=== PATIENT | female | born 1975 | race Caucasian/White ===

== ENCOUNTER → 2018-08-25 08:59 | Outpatient (CLI) | payer OTHER, SELFPAY ==
[2018-08-28 14:40] LABS: Rubeola Measles IgG < 25.00 AU/mL (< 25.00)
== END ==
PROVIDERS: Family Provider Family Medicine; PCP Family Medicine; Visit Provider Family Medicine
DX: Z01.84 Encounter for antibody response examination (principal)
CPT/HCPCS: 36415; 86765

== ENCOUNTER → 2018-09-13 15:05 | Outpatient (CLI) | payer OTHER, SELFPAY ==
[2018-09-13 17:37] LABS: Free T4, Direct Thyroxine 3.48 ng/dL (0.78-2.19)
[2018-09-13 17:51] LABS: Thyroid Stimulating Hormone < 0.02 uIU/mL (0.47-4.68)
[2018-09-18 14:36] LABS: Thyroid Peroxidase Antibodies 1 IU/mL (< 9)
== END ==
PROVIDERS: PCP Family Medicine; Visit Provider Family Medicine
DX: L65.9 Nonscarring hair loss, unspecified (principal); E05.90 Thyrotoxicosis, unspecified without thyrotoxic crisis or storm
CPT/HCPCS: 36415; 84439; 84443; 84481; 86376

== ENCOUNTER 2018-09-20 16:17 | Emergency (ER) | payer OTHER, SELFPAY ==
[2018-09-20 16:20] VITALS: BP 132/103; PULSE 121; RESP 18; TEMP 36.6; O2SAT 98; BMI 25.1
--- NOTE | 2018-09-20 16:30 | ED.ARRPALP ---
HPI - Arrhythmia/Palpitations <Jeanette Lynch PA-C - Last Filed: 09/20/18 21:19> General Chief Complaint: Recheck/Abnormal Lab/Rx Stated Complaint: rapid heart rate, thyroid numbers are off Time Seen by Provider: 09/20/18 16:18 Source: patient Mode of arrival: ambulatory Limitations: no limitations History of Present Illness HPI narrative: This 43-year-old female was sent from her PCP office due to tachycardia concern for possible thyroid storm. She states that for about 2 months, she has had intermittent fast heart rate that she can usually resolve on her own with taking deep breaths. She states she does that to help with her anxiety and it usually works well. She states that she can feel uncomfortable with heart rates in the 90-100 range at home, and the highest heart rate she has seen is 120, but usually this is not sustained. She states that today, she noted high heart rate this morning and it was not coming down as usual which is what prompted her to go in. She states she has not had any chest pain or dyspnea. She has had intermittent problem with her heart either pounding or fast heart rate keeping her up at night. She has not had any irregular heartbeat. She states she has had more fatigue for the last couple of months. She has not had any fever. She denies bowel habit change or any diarrhea. She has not had any nausea or vomiting nor any new abdominal pain. She has not felt more anxious or agitated. She states that she has been eating and drinking normally and going about her usual activities. Only other + on systems review are occasional dysphagia and numbness and white discoloration of her fingers with cold exposure. She has a history of mild reactive airways for which she has not needed an inhaler in years she says. Of note she has taken propanolol in the past occasionally for anxiety without difficulties Related Data Home Medications Medication Instructions Recorded Confirmed lisdexamfetamine [Vyvanse] 70 mg PO QDAY #0 11/30/16 09/20/18 guanfacine 1 mg tablet 1 mg PO BID #0 tab 02/16/18 09/20/18 Previous Rx's Medication Instructions Recorded methimazole 10 mg tablet 10 mg PO DAILY #30 tab 09/20/18 propranolol 20 mg PO BID #90 tab 09/20/18 Allergies Allergy/AdvReac Type Severity Reaction Status Date / Time No Known Drug Allergies Allergy Verified 09/20/18 15:46 Review of Systems <Jeanette Lynch PA-C - Last Filed: 09/20/18 21:19> Review of Systems ROS Unobtainable: All systems reviewed & are unremarkable except as noted in HPI and below PFSH <Jeanette Lynch PA-C - Last Filed: 09/20/18 21:19> Medical History Acne (Chronic ~1991) Alopecia areata (Chronic) Anxiety (Chronic ~1991) Asthma (Chronic ~1979) Chickenpox (Chronic ~1981) Chronic back pain (Chronic ~2009) Depression (Chronic ~1991) Eczema (Chronic) Eustachian tube dysfunction (Chronic) Frequent UTI (Chronic) Irregular menstrual cycle (Chronic) Migraines (Chronic ~2007) Obesity (Chronic) Painful menstrual periods (Chronic) Seasonal allergies (Chronic) Substance abuse (Chronic) Tendonitis, Achilles (Chronic) Trochanteric bursitis (Chronic) Abnormal Pap smear of cervix (Resolved) Gestational diabetes (Resolved) Surgical History Foot contusion (Resolved ~11/21/07) H/O tubal ligation (Resolved) Anesthesia (Inactive) Status post delivery (~1996) Status post delivery (~2002) Status post myringotomy with insertion of tube (~1984) Family History Child Age: 21 Autism Father Age: 69 Hepatitis C virus infection without hepatic coma, unspecified chronicity Substance use disorder Mother Age: 68 Diabetes mellitus Substance abuse Vertigo Osteoarthritis, unspecified osteoarthritis type, unspecified site Obesity, unspecified obesity severity, unspecified obesity type Uncomplicated asthma, unspecified asthma severity Secondary hypertension, unspecified Hyperlipidemia Grandfather Heart attack Grandmother Brain aneurysm Grandfather Heart attack Social History marital status: Smoking Status: Former smoker alcohol intake: current (ON OCCASION ) substance use type: does not use Social History marital status: Smoking Status: Former smoker alcohol intake: current (ON OCCASION ) substance use type: does not use Exam <Jeanette Lynch PA-C - Last Filed: 09/20/18 21:19> Narrative Exam Narrative: GENERAL APPEARANCE: Patient sitting comfortably, in no distress. HEENT: PERRL, EOMI, no scleral icterus NECK: Supple, no masses or thyromegaly LUNGS: Clear to auscultation bilaterally. HEART: Rate and rhythm regular, normal S1 and S2, no S3 or S4. ABDOMEN: Soft, nontender, nondistended, bowel sounds present x 4 quadrants, no masses palpable, no hepatosplenomegaly. EXTREMITIES: No edema, no calf tenderness DERMATOLOGIC: No jaundice or exanthem NEUROLOGIC: Alert and oriented with normal speech, gait and coordination. No tremor Initial Vital Signs Initial Vital Signs: Vital Signs Temperature 97.9 F 09/20/18 16:20 Pulse Rate 121 H 09/20/18 16:20 Respiratory Rate 18 09/20/18 16:20 Blood Pressure 132/103 H 09/20/18 16:20 Pulse Oximetry 98 09/20/18 16:20 <Florecita Bradley DO - Last Filed: 09/21/18 08:36> Initial Vital Signs Initial Vital Signs: Vital Signs Temperature 97.9 F 09/20/18 16:20 Pulse Rate 121 H 09/20/18 16:20 Respiratory Rate 18 09/20/18 16:20 Blood Pressure 132/103 H 09/20/18 16:20 Pulse Oximetry 98 09/20/18 16:20 Course <Jeanette Lynch PA-C - Last Filed: 09/20/18 21:19> Additional Information: On initial exam patient's heart rate ranges from 96 -121. She is afebrile, non agitated. She has not had diarrhea. She has not had any confusion or mental status change. She does not have any new edema or signs of CHF. She reports feeling improved after a dose of propanolol, which she has taken in the past. Heart rates in the 80s-90s range at time of discharge. She will continue that, start methimazole as prescribed by her PCP and follow up with PCP next week. She agreed to return if any acutely worsening symptoms in the interim Orders Ordered: Discontinued Medications Hydrocodone Bitart/Acetaminophen ([place] 5/325) 1 tab PO NOW ONE Stop: 09/20/18 19:04 Sodium Chloride (Normal Saline 0.9%) 1,000 mls @ 1,000 mls/hr IV BOLUS ONE Stop: 09/20/18 17:20 Last Admin: 09/20/18 17:16 Dose: 1,000 mls/hr Sodium Chloride (Normal Saline 0.9%) 1,000 mls @ 1,000 mls/hr IV BOLUS ONE Stop: 09/20/18 17:39 Propranolol HCl (Inderal) 20 mg PO NOW ONE Stop: 09/20/18 16:41 Last Admin: 09/20/18 17:32 Dose: 20 mg Vital Signs - 8 hr 09/20/18 16:20 09/20/18 18:36 09/20/18 19:07 Temperature 97.9 F Pulse Rate 121 H 92 H 90 Respiratory Rate 18 19 17 Blood Pressure 132/103 H 112/68 Blood Pressure [Right Arm] 117/74 Pulse Oximetry 98 100 100 <Florecita Bradley DO - Last Filed: 09/21/18 08:36> Orders Ordered: Discontinued Medications Hydrocodone Bitart/Acetaminophen ([place] 5/325) 1 tab PO NOW ONE Stop: 09/20/18 19:04 Sodium Chloride (Normal Saline 0.9%) 1,000 mls @ 1,000 mls/hr IV BOLUS ONE Stop: 09/20/18 17:20 Last Admin: 09/20/18 17:16 Dose: 1,000 mls/hr Sodium Chloride (Normal Saline 0.9%) 1,000 mls @ 1,000 mls/hr IV BOLUS ONE Stop: 09/20/18 17:39 Propranolol HCl (Inderal) 20 mg PO NOW ONE Stop: 09/20/18 16:41 Last Admin: 09/20/18 17:32 Dose: 20 mg Vital Signs - 8 hr 09/20/18 16:20 09/20/18 18:36 09/20/18 19:07 Temperature 97.9 F Pulse Rate 121 H 92 H 90 Respiratory Rate 18 19 17 Blood Pressure 132/103 H 112/68 Blood Pressure [Right Arm] 117/74 Pulse Oximetry 98 100 100 MDM - Arrhythmia/Palpitations <Jeanette Lynch PA-C - Last Filed: 09/20/18 21:19> Lab Data Attestation: I reviewed the patient's lab results. Result diagrams: 09/20/18 16:45 09/20/18 16:45 Lab Results 09/20/18 09/20/18 09/20/18 Range/Units 16:45 16:45 16:45 WBC 8.4 (4.5-11.0) X10^3/uL RBC 4.70 (4.0-5.2) X10^6/uL Hgb 14.3 (12.0-16.0) g/dL Hct 42.9 (36-46) % MCV 91.4 (80-100) fL MCH 30.4 (26-34) PG MCHC 33.3 (30-36) % RDW 12.0 (11.6-14.8) % Plt Count 216 (150-400) X10^3/uL Neut % (Auto) 64.4 (50-75) % Lymph % (Auto) 23.5 L (25-40) % [place] % (Auto) 9.8 (3-14) % Eos % (Auto) 1.3 L (2-4) % Baso % (Auto) 1.0 (0-2) % Neut # (Auto) 5400 (8015-7777) /uL Lymph # (Auto) 2000 (1047-5717) /uL [place] # (Auto) 800 (0-900) /uL Eos # (Auto) 100 (0-450) /uL Baso # (Auto) 100 (0-100) /uL Sodium 138 (137-145) mmol/L Potassium 3.9 (3.4-5.1) mmol/L Chloride 103 (98-107) mmol/L Carbon Dioxide 27 (22-32) mmol/L BUN 11 (7-17) mg/dL Creatinine 0.60 (0.52-1.04) mg/dL Estimated GFR > 60.0 (>60) mL/min BUN/Creatinine Ratio 18.3 (6-22) Glucose 107 H (70-100) mg/dL Calcium 9.5 (8.4-10.2) mg/dL Magnesium 1.8 (1.6-2.3) mg/dL Total Bilirubin 0.2 (0.2-1.3) mg/dL AST 20 (14-36) IU/L ALT 27 (9-52) IU/L Alkaline Phosphatase 53 (38-126) U/L B-Natriuretic Peptide < 100 (<100) Total Protein 7.2 (6.3-8.2) g/dL Albumin 4.0 (3.5-5.0) g/dL Globulin 3.2 (1.7-4.1) g/dL Albumin/Globulin Ratio 1.3 (1.0-2.8) Urine Dip Bedside Urine Glucose Negative Bedside Urine Bilirubin - Negative Bedside Urine Ketone - Negative Urine Specific Kirksey 1.025 Bedside Urine Occult Blood - Negative Bedside Urine pH 6.0 Bedside Urine Protein - Negative Bedside Urine Urobilinogen - Negative Bedside Urine Nitrite - Negative Bedside Urine Leukocytes - Negative Esterase Imaging Data Chest x-ray: Radiologist's impression: 19 Jeanette Lynch PA-C Find Patient Imaging Jessica Ackerman 43 F 1975 ACTIVITY DATE EXAM STATUS AUTHOR 09/20/18 16:39 [place] [address] XRay Report Signed Patient: Jessica Ackerman R#: [id number] : 1975Acct:[id number] Age/Sex: 43 / FDate of Service: 09/20/18 Loc: ED Accession Number: [id number] Procedure: XR chest 1V Ordering Provider: Jeanette Lynch P.A-C PROCEDURE: XR CHEST 1V INDICATIONS: tachy TECHNIQUE: One view of the chest was acquired. COMPARISON: None. FINDINGS: Surgical changes and devices: None. Lungs and pleura: Lungs are clear. No pleural effusions or pneumothorax. Mediastinum: Mediastinal contours appear normal. Heart size is normal. Bones and chest wall: No suspicious bony lesions. Overlying soft tissues appear unremarkable. IMPRESSION: No acute process. Dictated by: Marlyn Qureshi M.D. on 09/20/2018 at 16:57 Approved by: Marlyn Qureshi M.D. on 09/20/2018 at 16:57 ECG Data Attestation: I personally reviewed and interpreted this ECG as follows: (Outside EKG shows sinus tachycardia with rate 129) <Florecita Bradley DO - Last Filed: 09/21/18 08:36> Lab Data Lab Results 09/20/18 09/20/18 09/20/18 Range/Units 16:45 16:45 16:45 WBC 8.4 (4.5-11.0) X10^3/uL RBC 4.70 (4.0-5.2) X10^6/uL Hgb 14.3 (12.0-16.0) g/dL Hct 42.9 (36-46) % MCV 91.4 (80-100) fL MCH 30.4 (26-34) PG MCHC 33.3 (30-36) % RDW 12.0 (11.6-14.8) % Plt Count 216 (150-400) X10^3/uL Neut % (Auto) 64.4 (50-75) % Lymph % (Auto) 23.5 L (25-40) % [place] % (Auto) 9.8 (3-14) % Eos % (Auto) 1.3 L (2-4) % Baso % (Auto) 1.0 (0-2) % Neut # (Auto) 5400 (4234-4170) /uL Lymph # (Auto) 2000 (4322-7347) /uL [place] # (Auto) 800 (0-900) /uL Eos # (Auto) 100 (0-450) /uL Baso # (Auto) 100 (0-100) /uL Sodium 138 (137-145) mmol/L Potassium 3.9 (3.4-5.1) mmol/L Chloride 103 (98-107) mmol/L Carbon Dioxide 27 (22-32) mmol/L BUN 11 (7-17) mg/dL Creatinine 0.60 (0.52-1.04) mg/dL Estimated GFR > 60.0 (>60) mL/min BUN/Creatinine Ratio 18.3 (6-22) Glucose 107 H (70-100) mg/dL Calcium 9.5 (8.4-10.2) mg/dL Magnesium 1.8 (1.6-2.3) mg/dL Total Bilirubin 0.2 (0.2-1.3) mg/dL AST 20 (14-36) IU/L ALT 27 (9-52) IU/L Alkaline Phosphatase 53 (38-126) U/L B-Natriuretic Peptide < 100 (<100) Total Protein 7.2 (6.3-8.2) g/dL Albumin 4.0 (3.5-5.0) g/dL Globulin 3.2 (1.7-4.1) g/dL Albumin/Globulin Ratio 1.3 (1.0-2.8) Urine Dip Bedside Urine Glucose Negative Bedside Urine Bilirubin - Negative Bedside Urine Ketone - Negative Urine Specific Kirksey 1.025 Bedside Urine Occult Blood - Negative Bedside Urine pH 6.0 Bedside Urine Protein - Negative Bedside Urine Urobilinogen - Negative Bedside Urine Nitrite - Negative Bedside Urine Leukocytes - Negative Esterase Discharge Plan Departure Patient Disposition: Home Clinical Impression: Tachycardia, Hyperthyroidism Discharge Date/Time: 09/20/18 19:08 Interventions: ED Discharge Assessment Last Done: 09/20/18 19:07 Instructions: DI for Hyperthyroidism, DI for Tachycardia Activity Restrictions/Additional Instructions: Since you are feeling better, you can return home. The methimazole for you to start on has been sent to your pharmacy by Dr. Mathew. I have also sent in a prescription for propranolol to help with your fast heart rate. I would like you to try taking that twice daily as I think this will be enough to keep your heart rate comfortable, however you can increase the dose and take up to every 6-8 hours as needed if you are symptomatic with fast heart rate. Please return as we talked about if you are feeling acutely worse, i.e. worsening palpitations, or new symptoms such as fever, abdominal pain or vomiting, or confusion. Please follow up with Dr. Mathew next week to recheck your blood pressure and heart rate on the propranolol and discuss further testing. Prescriptions: New propranolol 20 mg tablet 20 mg PO BID Qty: 90 RF: 0 No Action lisdexamfetamine [Vyvanse] 50 MG capsule 70 mg PO QDAY Qty: 0 RF: 0 guanfacine 1 mg tablet 1 mg PO BID Qty: 0 RF: 0 methimazole 10 mg tablet 10 mg PO DAILY Qty: 30 RF: 1 Referrals: Gale Mathew DO [Primary Care Provider] - <Florecita Bradley DO - Last Filed: 09/21/18 08:36> Cosign ED Attending Cami Attestation: I was immediately available in the department for consultation. Documentation has been reviewed. I agree with assessment and plan.
--- NOTE | 2018-09-20 16:39 | ED_ITS ---
HPI - Arrhythmia/Palpitations <Jeanette Lynch PA-C - Last Filed: 09/20/18 21:19> General Chief Complaint: Recheck/Abnormal Lab/Rx Stated Complaint: rapid heart rate, thyroid numbers are off Time Seen by Provider: 09/20/18 16:18 Source: patient Mode of arrival: ambulatory Limitations: no limitations History of Present Illness HPI narrative: This 43-year-old female was sent from her PCP office due to tachycardia concern for possible thyroid storm. She states that for about 2 months, she has had intermittent fast heart rate that she can usually resolve on her own with taking deep breaths. She states she does that to help with her anxiety and it usually works well. She states that she can feel uncomfortable with heart rates in the 90-100 range at home, and the highest heart rate she has seen is 120, but usually this is not sustained. She states that today, she noted high heart rate this morning and it was not coming down as usual which is what prompted her to go in. She states she has not had any chest pain or dyspnea. She has had intermittent problem with her heart either pounding or fast heart rate keeping her up at night. She has not had any irregular heartbeat. She states she has had more fatigue for the last couple of months. She has not had any fever. She denies bowel habit change or any diarrhea. She has not had any nausea or vomiting nor any new abdominal pain. She has not felt more anxious or agitated. She states that she has been eating and drinking normally and going about her usual activities. Only other + on systems review are occasional dysphagia and numbness and white discoloration of her fingers with cold exposure. She has a history of mild reactive airways for which she has not needed an inhaler in years she says. Of note she has taken propanolol in the past occasionally for anxiety without difficulties Related Data Home Medications Medication Instructions Recorded Confirmed lisdexamfetamine [Vyvanse] 70 mg PO QDAY #0 11/30/16 09/20/18 guanfacine 1 mg tablet 1 mg PO BID #0 tab 02/16/18 09/20/18 Previous Rx's Medication Instructions Recorded methimazole 10 mg tablet 10 mg PO DAILY #30 tab 09/20/18 propranolol 20 mg PO BID #90 tab 09/20/18 Allergies Allergy/AdvReac Type Severity Reaction Status Date / Time No Known Drug Allergies Allergy Verified 09/20/18 15:46 Review of Systems <Jeanette Lynch PA-C - Last Filed: 09/20/18 21:19> Review of Systems ROS Unobtainable: All systems reviewed & are unremarkable except as noted in HPI and below PFSH <Jeanette Lynch PA-C - Last Filed: 09/20/18 21:19> Medical History Acne (Chronic ~1991) Alopecia areata (Chronic) Anxiety (Chronic ~1991) Asthma (Chronic ~1979) Chickenpox (Chronic ~1981) Chronic back pain (Chronic ~2009) Depression (Chronic ~1991) Eczema (Chronic) Eustachian tube dysfunction (Chronic) Frequent UTI (Chronic) Irregular menstrual cycle (Chronic) Migraines (Chronic ~2007) Obesity (Chronic) Painful menstrual periods (Chronic) Seasonal allergies (Chronic) Substance abuse (Chronic) Tendonitis, Achilles (Chronic) Trochanteric bursitis (Chronic) Abnormal Pap smear of cervix (Resolved) Gestational diabetes (Resolved) Surgical History Foot contusion (Resolved ~11/21/07) H/O tubal ligation (Resolved) Anesthesia (Inactive) Status post delivery (~1996) Status post delivery (~2002) Status post myringotomy with insertion of tube (~1984) Family History Child Age: 21 Autism Father Age: 69 Hepatitis C virus infection without hepatic coma, unspecified chronicity Substance use disorder Mother Age: 68 Diabetes mellitus Substance abuse Vertigo Osteoarthritis, unspecified osteoarthritis type, unspecified site Obesity, unspecified obesity severity, unspecified obesity type Uncomplicated asthma, unspecified asthma severity Secondary hypertension, unspecified Hyperlipidemia Grandfather Heart attack Grandmother Brain aneurysm Grandfather Heart attack Social History marital status: Smoking Status: Former smoker alcohol intake: current (ON OCCASION ) substance use type: does not use Social History marital status: Smoking Status: Former smoker alcohol intake: current (ON OCCASION ) substance use type: does not use Exam <Jeanette Lynch PA-C - Last Filed: 09/20/18 21:19> Narrative Exam Narrative: GENERAL APPEARANCE: Patient sitting comfortably, in no distress. HEENT: PERRL, EOMI, no scleral icterus NECK: Supple, no masses or thyromegaly LUNGS: Clear to auscultation bilaterally. HEART: Rate and rhythm regular, normal S1 and S2, no S3 or S4. ABDOMEN: Soft, nontender, nondistended, bowel sounds present x 4 quadrants, no masses palpable, no hepatosplenomegaly. EXTREMITIES: No edema, no calf tenderness DERMATOLOGIC: No jaundice or exanthem NEUROLOGIC: Alert and oriented with normal speech, gait and coordination. No tremor Initial Vital Signs Initial Vital Signs: Vital Signs Temperature 97.9 F 09/20/18 16:20 Pulse Rate 121 H 09/20/18 16:20 Respiratory Rate 18 09/20/18 16:20 Blood Pressure 132/103 H 09/20/18 16:20 Pulse Oximetry 98 09/20/18 16:20 <Florecita Bradley DO - Last Filed: 09/21/18 08:36> Initial Vital Signs Initial Vital Signs: Vital Signs Temperature 97.9 F 09/20/18 16:20 Pulse Rate 121 H 09/20/18 16:20 Respiratory Rate 18 09/20/18 16:20 Blood Pressure 132/103 H 09/20/18 16:20 Pulse Oximetry 98 09/20/18 16:20 Course <Jeanette Lynch PA-C - Last Filed: 09/20/18 21:19> Additional Information: On initial exam patient's heart rate ranges from 96 - 121. She is afebrile, non agitated. She has not had diarrhea. She has not had any confusion or mental status change. She does not have any new edema or signs of CHF. She reports feeling improved after a dose of propanolol, which she has taken in the past. Heart rates in the 80s-90s range at time of discharge. She will continue that, start methimazole as prescribed by her PCP and follow up with PCP next week. She agreed to return if any acutely worsening symptoms in the interim Orders Ordered: Discontinued Medications Hydrocodone Bitart/Acetaminophen ([place] 5/325) 1 tab PO NOW ONE Stop: 09/20/18 19:04 Sodium Chloride (Normal Saline 0.9%) 1,000 mls @ 1,000 mls/hr IV BOLUS ONE Stop: 09/20/18 17:20 Last Admin: 09/20/18 17:16 Dose: 1,000 mls/hr Sodium Chloride (Normal Saline 0.9%) 1,000 mls @ 1,000 mls/hr IV BOLUS ONE Stop: 09/20/18 17:39 Propranolol HCl (Inderal) 20 mg PO NOW ONE Stop: 09/20/18 16:41 Last Admin: 09/20/18 17:32 Dose: 20 mg Vital Signs - 8 hr 09/20/18 16:20 09/20/18 18:36 09/20/18 19:07 Temperature 97.9 F Pulse Rate 121 H 92 H 90 Respiratory Rate 18 19 17 Blood Pressure 132/103 H 112/68 Blood Pressure [Right Arm] 117/74 Pulse Oximetry 98 100 100 <Florecita Bradley DO - Last Filed: 09/21/18 08:36> Orders Ordered: Discontinued Medications Hydrocodone Bitart/Acetaminophen ([place] 5/325) 1 tab PO NOW ONE Stop: 09/20/18 19:04 Sodium Chloride (Normal Saline 0.9%) 1,000 mls @ 1,000 mls/hr IV BOLUS ONE Stop: 09/20/18 17:20 Last Admin: 09/20/18 17:16 Dose: 1,000 mls/hr Sodium Chloride (Normal Saline 0.9%) 1,000 mls @ 1,000 mls/hr IV BOLUS ONE Stop: 09/20/18 17:39 Propranolol HCl (Inderal) 20 mg PO NOW ONE Stop: 09/20/18 16:41 Last Admin: 09/20/18 17:32 Dose: 20 mg Vital Signs - 8 hr 09/20/18 16:20 09/20/18 18:36 09/20/18 19:07 Temperature 97.9 F Pulse Rate 121 H 92 H 90 Respiratory Rate 18 19 17 Blood Pressure 132/103 H 112/68 Blood Pressure [Right Arm] 117/74 Pulse Oximetry 98 100 100 MDM - Arrhythmia/Palpitations <Jeanette Lynch PA-C - Last Filed: 09/20/18 21:19> Lab Data Attestation: I reviewed the patient's lab results. Result diagrams: 09/20/18 16:45 09/20/18 16:45 Lab Results 09/20/18 09/20/18 09/20/18 Range/Units 16:45 16:45 16:45 WBC 8.4 (4.5-11.0) X10^3/uL RBC 4.70 (4.0-5.2) X10^6/uL Hgb 14.3 (12.0-16.0) g/dL Hct 42.9 (36-46) % MCV 91.4 (80-100) fL MCH 30.4 (26-34) PG MCHC 33.3 (30-36) % RDW 12.0 (11.6-14.8) % Plt Count 216 (150-400) X10^3/uL Neut % (Auto) 64.4 (50-75) % Lymph % (Auto) 23.5 L (25-40) % [place] % (Auto) 9.8 (3-14) % Eos % (Auto) 1.3 L (2-4) % Baso % (Auto) 1.0 (0-2) % Neut # (Auto) 5400 (6176-1186) /uL Lymph # (Auto) 2000 (7979-9980) /uL [place] # (Auto) 800 (0-900) /uL Eos # (Auto) 100 (0-450) /uL Baso # (Auto) 100 (0-100) /uL Sodium 138 (137-145) mmol/L Potassium 3.9 (3.4-5.1) mmol/L Chloride 103 (98-107) mmol/L Carbon Dioxide 27 (22-32) mmol/L BUN 11 (7-17) mg/dL Creatinine 0.60 (0.52-1.04) mg/dL Estimated GFR > 60.0 (>60) mL/min BUN/Creatinine Ratio 18.3 (6-22) Glucose 107 H (70-100) mg/dL Calcium 9.5 (8.4-10.2) mg/dL Magnesium 1.8 (1.6-2.3) mg/dL Total Bilirubin 0.2 (0.2-1.3) mg/dL AST 20 (14-36) IU/L ALT 27 (9-52) IU/L Alkaline Phosphatase 53 (38-126) U/L B-Natriuretic Peptide < 100 (<100) Total Protein 7.2 (6.3-8.2) g/dL Albumin 4.0 (3.5-5.0) g/dL Globulin 3.2 (1.7-4.1) g/dL Albumin/Globulin Ratio 1.3 (1.0-2.8) Urine Dip Bedside Urine Glucose Negative Bedside Urine Bilirubin - Negative Bedside Urine Ketone - Negative Urine Specific [place] 1.025 Bedside Urine Occult Blood - Negative Bedside Urine pH 6.0 Bedside Urine Protein - Negative Bedside Urine Urobilinogen - Negative Bedside Urine Nitrite - Negative Bedside Urine Leukocytes - Negative Esterase Imaging Data Chest x-ray: Radiologist's impression: 19 Jeanette Lynch PA-C Find Patient Imaging Jessica Ackerman 43 F 1975 ACTIVITY DATE EXAM STATUS AUTHOR 09/20/18 16:39 [place] [address] XRay Report Signed Patient: Jessica Ackerman R#: [id number] : 1975Acct:[id number] Age/Sex: 43 / FDate of Service: 09/20/18 Loc: ED Accession Number: [id number] Procedure: XR chest 1V Ordering Provider: Jeanette Lynch P.A-C PROCEDURE: XR CHEST 1V INDICATIONS: tachy TECHNIQUE: One view of the chest was acquired. COMPARISON: None. FINDINGS: Surgical changes and devices: None. Lungs and pleura: Lungs are clear. No pleural effusions or pneumothorax. Mediastinum: Mediastinal contours appear normal. Heart size is normal. Bones and chest wall: No suspicious bony lesions. Overlying soft tissues appear unremarkable. IMPRESSION: No acute process. Dictated by: Marlyn Qureshi M.D. on 09/20/2018 at 16:57 Approved by: Marlyn Qureshi M.D. on 09/20/2018 at 16:57 ECG Data Attestation: I personally reviewed and interpreted this ECG as follows: (Outside EKG shows sinus tachycardia with rate 129) <Florecita Bradley DO - Last Filed: 09/21/18 08:36> Lab Data Lab Results 09/20/18 09/20/18 09/20/18 Range/Units 16:45 16:45 16:45 WBC 8.4 (4.5-11.0) X10^3/uL RBC 4.70 (4.0-5.2) X10^6/uL Hgb 14.3 (12.0-16.0) g/dL Hct 42.9 (36-46) % MCV 91.4 (80-100) fL MCH 30.4 (26-34) PG MCHC 33.3 (30-36) % RDW 12.0 (11.6-14.8) % Plt Count 216 (150-400) X10^3/uL Neut % (Auto) 64.4 (50-75) % Lymph % (Auto) 23.5 L (25-40) % [place] % (Auto) 9.8 (3-14) % Eos % (Auto) 1.3 L (2-4) % Baso % (Auto) 1.0 (0-2) % Neut # (Auto) 5400 (8604-0413) /uL Lymph # (Auto) 2000 (1439-8954) /uL [place] # (Auto) 800 (0-900) /uL Eos # (Auto) 100 (0-450) /uL Baso # (Auto) 100 (0-100) /uL Sodium 138 (137-145) mmol/L Potassium 3.9 (3.4-5.1) mmol/L Chloride 103 (98-107) mmol/L Carbon Dioxide 27 (22-32) mmol/L BUN 11 (7-17) mg/dL Creatinine 0.60 (0.52-1.04) mg/dL Estimated GFR > 60.0 (>60) mL/min BUN/Creatinine Ratio 18.3 (6-22) Glucose 107 H (70-100) mg/dL Calcium 9.5 (8.4-10.2) mg/dL Magnesium 1.8 (1.6-2.3) mg/dL Total Bilirubin 0.2 (0.2-1.3) mg/dL AST 20 (14-36) IU/L ALT 27 (9-52) IU/L Alkaline Phosphatase 53 (38-126) U/L B-Natriuretic Peptide < 100 (<100) Total Protein 7.2 (6.3-8.2) g/dL Albumin 4.0 (3.5-5.0) g/dL Globulin 3.2 (1.7-4.1) g/dL Albumin/Globulin Ratio 1.3 (1.0-2.8) Urine Dip Bedside Urine Glucose Negative Bedside Urine Bilirubin - Negative Bedside Urine Ketone - Negative Urine Specific [place] 1.025 Bedside Urine Occult Blood - Negative Bedside Urine pH 6.0 Bedside Urine Protein - Negative Bedside Urine Urobilinogen - Negative Bedside Urine Nitrite - Negative Bedside Urine Leukocytes - Negative Esterase Discharge Plan Departure Patient Disposition: Home Clinical Impression: Tachycardia, Hyperthyroidism Discharge Date/Time: 09/20/18 19:08 Interventions: ED Discharge Assessment Last Done: 09/20/18 19:07 Instructions: DI for Hyperthyroidism, DI for Tachycardia Activity Restrictions/Additional Instructions: Since you are feeling better, you can return home. The methimazole for you to start on has been sent to your pharmacy by Dr. Mathew. I have also sent in a prescription for propranolol to help with your fast heart rate. I would like you to try taking that twice daily as I think this will be enough to keep your heart rate comfortable, however you can increase the dose and take up to every 6-8 hours as needed if you are symptomatic with fast heart rate. Please return as we talked about if you are feeling acutely worse, i.e. worsening palpitations, or new symptoms such as fever, abdominal pain or vomiting, or confusion. Please follow up with Dr. Mathew next week to recheck your blood pr essure and heart rate on the propranolol and discuss further testing. Prescriptions: New propranolol 20 mg tablet 20 mg PO BID Qty: 90 RF: 0 No Action lisdexamfetamine [Vyvanse] 50 MG capsule 70 mg PO QDAY Qty: 0 RF: 0 guanfacine 1 mg tablet 1 mg PO BID Qty: 0 RF: 0 methimazole 10 mg tablet 10 mg PO DAILY Qty: 30 RF: 1 Referrals: Gale Mathew DO [Primary Care Provider] - <Florecita Bradley DO - Last Filed: 09/21/18 08:36> Cosign ED Attending Cami Attestation: I was immediately available in the department for consultation. Documentation has been reviewed. I agree with assessment and plan.
[2018-09-20 17:03] LABS: Add Manual Diff / Slide Review NO; Basophils Absolute Auto 100 /uL (0-100); Eosinophils Absolute Auto 100 /uL (0-450); Eosinophils Percent Auto 1.3 % (2-4); Hematocrit 42.9 % (36-46); Hemoglobin 14.3 g/dL (12.0-16.0); Lymphocytes Absolute Auto 2000 /uL (1100-4500); Lymphocytes Percent Auto 23.5 % (25-40); Mean Corpuscular HGB Conc 33.3 % (30-36); Mean Corpuscular Hemoglobin 30.4 PG (26-34); Mean Corpuscular Volume 91.4 fL (80-100); Monocytes Absolute Auto 800 /uL (0-900); Monocytes Percent Auto 9.8 % (3-14); Neutrophils Absolute Auto 5400 /uL (1500-7000); Neutrophils Percent Auto 64.4 % (50-75); Platelet Count 216 X10^3/uL (150-400); White Blood Cell Count 8.4 X10^3/uL (4.5-11.0)
[2018-09-20 17:14] LABS: Alanine Aminotransferase 27 IU/L (9-52); Albumin Globulin Ratio 1.3 (1.0-2.8); Alkaline Phosphatase 53 U/L (38-126); Aspartate Aminotransferase 20 IU/L (14-36); BUN Creatinine Ratio 18.3 (6-22); Bilirubin Total 0.2 mg/dL (0.2-1.3); Blood Urea Nitrogen 11 mg/dL (7-17); Calcium 9.5 mg/dL (8.4-10.2); Carbon Dioxide 27 mmol/L (22-32); Chloride 103 mmol/L (98-107); Estimated Glomerular Filt Rate > 60.0 mL/min (>60); Globulin 3.2 g/dL (1.7-4.1); Glucose 107 mg/dL (70-100); HEMOLYSIS < 15 (0-50); Magnesium 1.8 mg/dL (1.6-2.3); Potassium 3.9 mmol/L (3.4-5.1); Sodium 138 mmol/L (137-145); Total Protein 7.2 g/dL (6.3-8.2)
[2018-09-20] MEDS: SODIUM CHLORIDE 0.9% 1,000 ML 1000 ML IV (17:16)
[2018-09-20 17:21] LABS: B Type Natriuretic Peptide < 100 (<100)
[2018-09-20] MEDS: PROPRANOLOL 10 MG TABLET 20 MG PO (17:32)
--- NOTE | 2018-09-20 18:14 | PC.NURSE ---
pt feeling more anxious lately.
[2018-09-20 18:36] VITALS: BP 117/74; PULSE 92; RESP 19; O2SAT 100
[2018-09-20 19:07] VITALS: BP 112/68; PULSE 90; RESP 17; O2SAT 100
--- NOTE | 2018-10-11 11:15 | PC.NURSE ---
late entry: 08/2818 at 1830 pt completed 1000ml Iv NS bolus.
== END 2018-09-20 19:08 | disposition home or self-care (01) ==
PROVIDERS: Emergency Provider Internal Medicine; Family Provider Family Medicine; PCP Family Medicine
DX: E05.90 Thyrotoxicosis, unspecified without thyrotoxic crisis or storm (principal); R00.0 Tachycardia, unspecified
CPT/HCPCS: 36591; 71045; 80053; 81003; 83735; 83880; 85025; 96360; 99282; 99284

== ENCOUNTER → 2018-09-24 09:08 | Outpatient (CLI) | payer OTHER, SELFPAY ==
--- NOTE | 2018-09-24 09:09 | DI.US.S_ITS ---
PROCEDURE: US THYROID INDICATIONS: HYPERTHYROIDISM TECHNIQUE: Real-time scanning was performed of the thyroid gland, with image documentation. COMPARISON: None. FINDINGS: Right: Thyroid lobe measures 5.3 x 1.2 x 1.4 cm, and demonstrates slightly heterogeneous echotexture. Mild increased vascularity. Left: Thyroid lobe measures 5.0 x 1.0 x 1.3 cm, and demonstrates slightly heterogeneous echotexture. There is a 6 x 4 x 7 mm hypoechoic nodule in the inferior pole. Mild increased vascularity. Isthmus: 1.9 mm thick. Nodule number: 1 Location: Inferior pole left thyroid lobe Size: 6 x 4 x 7 mm. Composition: Solid Echogenicity: Hypoechoic Shape: wider than tall. Margins: Most Echogenic foci: None Total points: 4 ACR TI-RADS category: 4 IMPRESSION: 1. A subcentimeter thyroid nodule in the inferior pole of the left thyroid lobe. Recommend ultrasound followup in 12 months. 2. Slightly heterogeneous echotexture of thyroid gland with mildly increased vascularity. Please correlate with thyroid function tests. If clinically indicated, I-123 thyroid scintigraphy and uptake may be helpful. ACR TI-RADS definitions and recommendations: TI-RADS 1 (benign): 0 points. FNA not needed. TI-RADS 2 (not suspicious): 2 points. FNA not needed. TI-RADS 3 (mildly suspicious): 3 points. * FNA if 2.5 cm or larger, follow up if 1.5 cm or larger (at 1, 3, and 5 years). TI-RADS 4 (moderately suspicious): 4-6 points. * FNA if 1.5 cm or larger, follow up if 1 cm or larger (at 1, 2, 3, and 5 years). TI-RADS 5 (highly suspicious): 7 points or more. * FNA if 1 cm or larger, follow up if 0.5 cm or larger (every year for 5 years). Dictated by: Betty Hernandez M.D. on 09/24/2018 at 9:45 Approved by: Betty Hernandez M.D. on 09/24/2018 at 9:51
== END ==
PROVIDERS: PCP Family Medicine; Visit Provider Family Medicine
DX: E05.90 Thyrotoxicosis, unspecified without thyrotoxic crisis or storm (principal); E04.1 Nontoxic single thyroid nodule
CPT/HCPCS: 76536

== ENCOUNTER → 2018-10-04 11:59 | Outpatient (CLI) | payer OTHER, SELFPAY ==
[2018-10-04 12:33] LABS: Add Manual Diff / Slide Review NO; Basophils Absolute Auto 100 /uL (0-100); Basophils Percent Auto 1.1 % (0-2); Eosinophils Absolute Auto 200 /uL (0-450); Eosinophils Percent Auto 2.9 % (2-4); Hematocrit 41.7 % (36-46); Hemoglobin 13.9 g/dL (12.0-16.0); Lymphocytes Absolute Auto 1700 /uL (1100-4500); Lymphocytes Percent Auto 28.2 % (25-40); Mean Corpuscular HGB Conc 33.2 % (30-36); Mean Corpuscular Hemoglobin 30.4 PG (26-34); Mean Corpuscular Volume 91.4 fL (80-100); Monocytes Absolute Auto 500 /uL (0-900); Monocytes Percent Auto 7.7 % (3-14); Neutrophils Absolute Auto 3600 /uL (1500-7000); Neutrophils Percent Auto 60.1 % (50-75); Platelet Count 213 X10^3/uL (150-400); Red Blood Cell Count 4.56 X10^6/uL (4.0-5.2); Red Cell Distribution Width 12.2 % (11.6-14.8); White Blood Cell Count 5.9 X10^3/uL (4.5-11.0)
[2018-10-04 13:06] LABS: Alanine Aminotransferase 27 IU/L (9-52); Albumin 3.8 g/dL (3.5-5.0); Albumin Globulin Ratio 1.3 (1.0-2.8); Alkaline Phosphatase 54 U/L (38-126); Aspartate Aminotransferase 18 IU/L (14-36); BUN Creatinine Ratio 13.3 (6-22); Bilirubin Total 0.2 mg/dL (0.2-1.3); Blood Urea Nitrogen 8 mg/dL (7-17); Calcium 8.9 mg/dL (8.4-10.2); Carbon Dioxide 29 mmol/L (22-32); Chloride 104 mmol/L (98-107); Estimated Glomerular Filt Rate > 60.0 mL/min (>60); Glucose 84 mg/dL (70-100); HEMOLYSIS < 15 (0-50); Potassium 4.2 mmol/L (3.4-5.1); Sodium 141 mmol/L (137-145); Total Protein 6.8 g/dL (6.3-8.2)
[2018-10-04 16:33] LABS: Free T4, Direct Thyroxine 1.74 ng/dL (0.78-2.19)
[2018-10-06 17:20] LABS: Triiodothyronine T3 Total 144 ng/dL (76-181)
== END ==
PROVIDERS: PCP Family Medicine; Visit Provider Family Medicine
DX: E05.90 Thyrotoxicosis, unspecified without thyrotoxic crisis or storm (principal); Z79.899 Other long term (current) drug therapy
CPT/HCPCS: 36415; 80053; 83519; 84439; 84480; 85025

== ENCOUNTER → 2018-11-16 10:26 | Outpatient (CLI) | payer OTHER, SELFPAY ==
[2018-11-16 11:11] LABS: Add Manual Diff / Slide Review NO; Basophils Absolute Auto 100 /uL (0-100); Eosinophils Absolute Auto 100 /uL (0-450); Eosinophils Percent Auto 1.4 % (2-4); Hematocrit 42.1 % (36-46); Hemoglobin 14.5 g/dL (12.0-16.0); Lymphocytes Absolute Auto 2100 /uL (1100-4500); Lymphocytes Percent Auto 25.1 % (25-40); Mean Corpuscular HGB Conc 34.4 % (30-36); Mean Corpuscular Hemoglobin 31.1 PG (26-34); Mean Corpuscular Volume 90.3 fL (80-100); Monocytes Absolute Auto 500 /uL (0-900); Monocytes Percent Auto 6.1 % (3-14); Neutrophils Absolute Auto 5500 /uL (1500-7000); Neutrophils Percent Auto 66.4 % (50-75); Platelet Count 230 X10^3/uL (150-400); Red Blood Cell Count 4.66 X10^6/uL (4.0-5.2); Red Cell Distribution Width 13.3 % (11.6-14.8); White Blood Cell Count 8.3 X10^3/uL (4.5-11.0)
[2018-11-16 11:21] LABS: Alanine Aminotransferase 18 IU/L (9-52); Albumin Globulin Ratio 1.3 (1.0-2.8); Alkaline Phosphatase 74 U/L (38-126); Aspartate Aminotransferase 21 IU/L (14-36); BUN Creatinine Ratio 14.3 (6-22); Bilirubin Total 0.2 mg/dL (0.2-1.3); Blood Urea Nitrogen 10 mg/dL (7-17); Calcium 8.9 mg/dL (8.4-10.2); Carbon Dioxide 28 mmol/L (22-32); Chloride 102 mmol/L (98-107); Estimated Glomerular Filt Rate > 60.0 mL/min (>60); Globulin 3.2 g/dL (1.7-4.1); Glucose 103 mg/dL (70-100); HEMOLYSIS < 15 (0-50); Potassium 4.5 mmol/L (3.4-5.1); Sodium 140 mmol/L (137-145); Total Protein 7.2 g/dL (6.3-8.2)
[2018-11-16 11:49] LABS: Free T3, Triiodothyronine Free 3.02 pg/mL (2.77-5.27); Free T4, Direct Thyroxine 0.66 ng/dL (0.78-2.19)
[2018-11-16 15:26] LABS: Thyroid Stimulating Hormone 2.43 uIU/mL (0.47-4.68)
[2018-11-20 11:47] LABS: Miscellaneous to LabCorp 1.03
== END ==
PROVIDERS: PCP Family Medicine; Visit Provider Internal Medicine Endocrinology, Diabetes & Metabolism
DX: E05.90 Thyrotoxicosis, unspecified without thyrotoxic crisis or storm (principal)
CPT/HCPCS: 36415; 80053; 83516; 84439; 84443; 84481; 85025

== ENCOUNTER → 2018-12-10 09:23 | Outpatient (CLI) | payer OTHER, SELFPAY ==
--- NOTE | 2018-12-10 09:24 | DI.MRI.S_ITS ---
PROCEDURE: MR HIP RT WO/W CON INDICATIONS: Hip pain and osteoarthritis. TECHNIQUE: Noncontrast coronal T1 spin echo and STIR through the bony pelvis. Coronal and axial T2 fast spin echo with fat saturation, axial T1 spin echo with fat saturation, sagittal T1 spin echo, and oblique axial T2 fast spin echo with fat saturation through the hip. Post-contrast axial, coronal, and sagittal spin echo with fat saturation through the hip. COMPARISON: [facility], CR, [id number] W PEL IF PERFORMED, 06/05/2017, 11:12. FINDINGS: Image quality: Excellent. Bones and joints: No suspicious osseous enhancement. Bone marrow of the pelvic ring and proximal femurs show normal signal throughout. No intraosseous lesions or fractures. No avascular necrosis of the femoral heads. The visualized lower lumbar spine appears normally aligned. 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 Tendons and ligaments: There is mild partial tearing of the gluteus minimus tendon distally with mild peritendinous edema and enhancement. There is also minimal partial tear next insertion of the gluteus medius with minimal peritendinous edema and enhancement. No discrete bursal fluid collection. The adjacent proximal iliotibial band also appears intact. The iliopsoas tendon appears intact, without adjacent bursal fluid collections or evidence for impingement syndrome. The origin of the hamstring tendon is intact at the ischial tuberosity, as well as the associated sacrotuberous ligament. The straight and reflected heads of the rectus femoris muscle origin appear intact, as well as the conjoint tendon. The ligamentum teres appears intact where visualized. Labrum and cartilage: The acetabular labrum appears grossly intact in the absence of intra-articular contrast. There is mild degenerative signal within the anterosuperior labrum. Cartilage surface of the femoral head appears of normal thickness. The alpha angle of the femur is within normal limits at less than 55 degrees. Soft tissues: No suspicious soft tissue enhancement. Visualized muscles demonstrate normal bulk and internal signal. Quadratus femoris muscle demonstrates no internal edema to suggest ischiofemoral impingement. The proximal sciatic neurovascular bundle appears normal adjacent to the hamstring tendons. No free pelvic fluid. Bladder wall thickness is normal. Genitourinary structures and bowel loops appear normal where visualized. IMPRESSION: 1. Mild partial tearing of the gluteus minimus and medius tendons with mild peritendinitis. No discrete bursal fluid collection. Dictated by: Stephen Pizano M.D. on 12/10/2018 at 16:37 Approved by: Stephen Pizano M.D. on 12/10/2018 at 16:57
== END ==
PROVIDERS: PCP Family Medicine; Visit Provider Physical Medicine & Rehabilitation
DX: M16.11 Unilateral primary osteoarthritis, right hip (principal); M25.551 Pain in right hip; M76.01 Gluteal tendinitis, right hip
CPT/HCPCS: 73723; A9579

== ENCOUNTER → 2019-01-08 09:21 | Outpatient (CLI) | payer OTHER, SELFPAY ==
[2019-01-08 10:46] LABS: Free T4, Direct Thyroxine 0.84 ng/dL (0.78-2.19)
[2019-01-08 11:00] LABS: Thyroid Stimulating Hormone 3.42 uIU/mL (0.47-4.68)
== END ==
PROVIDERS: PCP Family Medicine; Visit Provider Internal Medicine Endocrinology, Diabetes & Metabolism
DX: E05.90 Thyrotoxicosis, unspecified without thyrotoxic crisis or storm (principal)
CPT/HCPCS: 36415; 84439; 84443

== ENCOUNTER → 2019-02-26 14:56 | Outpatient (CLI) | payer OTHER, SELFPAY ==
[2019-02-26 16:05] LABS: Thyroid Stimulating Hormone 2.43 uIU/mL (0.47-4.68)
== END ==
PROVIDERS: Family Provider Family Medicine; PCP Family Medicine; Visit Provider Internal Medicine Endocrinology, Diabetes & Metabolism
DX: E05.90 Thyrotoxicosis, unspecified without thyrotoxic crisis or storm (principal)
CPT/HCPCS: 36415; 84439; 84443

== ENCOUNTER 2019-07-20 00:21 | Emergency (ER) | payer OTHER, SELFPAY ==
[2019-07-20 00:40] VITALS: BP 136/101; PULSE 89; RESP 16; TEMP 36.9; O2SAT 99; BMI 27.3
--- NOTE | 2019-07-20 00:50 | PC.NURSE ---
range of motion limited by pain.
[2019-07-20] MEDS: CYCLOBENZAPRINE 10 MG PREPACK 1 BOTTLE MISC (01:40)
[2019-07-20 01:45] VITALS: BP 111/79; PULSE 87; RESP 16; O2SAT 97
--- NOTE | 2019-07-20 04:47 | ED_ITS ---
HPI - Extremity Injury (Upper) General Chief Complaint: Extremity Injury, Upper Stated Complaint: hurt neck/shoulder/back today Time Seen by Provider: 07/20/19 00:26 Source: patient Mode of arrival: Ambulatory Limitations: no limitations History of Present Illness HPI narrative: 43-year-old female nonsmoker presents with her in the chief complaint of gradually worsening right shoulder pain over the past few days. She denies any specific injury or memorable event leading to this. She denies any obvious overuse or history of the same. Her pain is significant with range of motion and includes her entire shoulder girdle as well as the right side of her neck and right shoulder blade. She denies neurologic symptoms such as numbness, tingling or weakness. She denies any fever or chills. MD complaint: injury to: right and shoulder Onset (ago): day(s) Handedness: right Severity: moderate Relieving factors: immobilization and rest Exacerbating factors: movement of extremity Associated symptoms: denies other symptoms Related Data Home Medications Medication Instructions Recorded Confirmed methimazole 5 mg tablet 2.5 mg PO DAILY tab 11/23/18 05/08/19 methylphenidate HCl 36 mg 36 mg PO DAILY 04/01/19 05/08/19 tablet,extended release 24 hr tizanidine 2 mg capsule 2 mg PO DAILY cap 04/01/19 05/08/19 benzocaine 6 mg-menthol 10 mg 1 lozenge MM Q2-4H PRN 05/08/19 05/08/19 lozenges dextromethorphan HBr 15 mg/5 mL 15 mg PO ONCE 05/08/19 05/08/19 oral syrup methylphenidate HCl 18 mg 18 mg PO .PM tab 05/08/19 05/08/19 tablet,extended release 24 hr Previous Rx's Medication Instructions Recorded celecoxib 200 mg capsule 200 mg PO DAILY #90 cap 04/01/19 amoxicillin 875 mg-potassium 1 tab PO BID #10 tab 05/08/19 clavulanate 125 mg tablet cyclobenzaprine 10 mg PO TID PRN #14 tab 07/20/19 Allergies Allergy/AdvReac Type Severity Reaction Status Date / Time No Known Drug Allergies Allergy Verified 05/08/19 10:33 Review of Systems Constitutional Constitutional: Denies chills, Denies fatigue, Denies fever(s), Denies frequent falls, Denies lethargy and Denies weakness Eyes Eyes: Denies change in vision, Denies eye discharge, Denies irritation and Denies loss of vision ENT Ears, Nose, Mouth, and Throat: Denies change in voice, Denies dizziness, Denies neck pain, Denies sore throat and Denies throat swelling Cardiovascular Cardiovascular: Denies chest pain, Denies irregular heart rhythm, Denies lightheadedness, Denies palpitations, Denies dyspnea, Denies dyspnea on exertion and Denies orthopnea Respiratory Respiratory: Denies cough, Denies dyspnea, Denies dyspnea on exertion and Denies wheezing Gastrointestinal Gastrointestinal: Denies abdominal pain, Denies change in bowel habits, Denies diarrhea, Denies nausea and Denies vomiting Genitourinary Genitourinary: Denies hematuria, Denies flank pain, Denies urinary incontinence and Denies urinary urgency Musculoskeletal Musculoskeletal: Denies back pain, Reports limited range of motion, Denies muscle weakness, Denies neck pain, Denies numbness and Denies tingling Integumentary/Breasts Skin/Breast: Denies pruritus, Denies erythema, Denies rash and Denies wounds Neurologic Neurologic: Denies behavioral changes, Denies confusion, Denies dizziness, Denies frequent falls, Denies loss of vision, Denies numbness, Denies tingling and Denies weakness Psychiatric Psychiatric: Denies anxiety, Denies behavioral changes, Denies confusion, Denies depression, Denies homicidal ideation and Denies suicidal ideation Endocrine Endocrine: Denies fatigue, Denies flushing and Denies palpitations Hematologic/Lymphatic Hematologic/Lymphatic: Denies easy bruising Allergic/Immunologic Allergic/Immunologic: Denies urticaria, Denies throat swelling and Denies wheezing Patient History Medical History Abnormal Pap smear of cervix (Resolved) Acne (Chronic ~1991) Alopecia areata (Chronic) Anxiety (Chronic ~1991) Asthma (Chronic ~1979) Chickenpox (Chronic ~1981) Chronic back pain (Chronic ~2009) Depression (Chronic ~1991) Eczema (Chronic) Eustachian tube dysfunction (Chronic) Frequent UTI (Chronic) Gestational diabetes (Resolved) Irregular menstrual cycle (Chronic) Migraines (Chronic ~2007) Obesity (Chronic) Painful menstrual periods (Chronic) Seasonal allergies (Chronic) Substance abuse (Chronic) Tendonitis, Achilles (Chronic) Trochanteric bursitis (Chronic) Surgical History Anesthesia (Inactive) Foot contusion (Resolved ~11/21/07) H/O tubal ligation (Resolved) Status post delivery (~1996) Status post delivery (~2002) Status post myringotomy with insertion of tube (~1984) Family History Child Age: 22 Autism Father Age: 70 Hepatitis C virus infection without hepatic coma, unspecified chronicity Substance use disorder Mother Age: 69 Diabetes mellitus Substance abuse Vertigo Osteoarthritis, unspecified osteoarthritis type, unspecified site Obesity, unspecified obesity severity, unspecified obesity type Uncomplicated asthma, unspecified asthma severity Secondary hypertension, unspecified Hyperlipidemia Grandfather Heart attack Grandmother Brain aneurysm Grandfather Heart attack Social History marital status: Smoking Status: Former smoker alcohol intake: current (ON OCCASION ) substance use type: does not use Smoking Status: Former smoker alcohol intake frequency: 0-2 drinks per day Substance Use Type: does not use Exam Narrative Exam Narrative: GEN: AOx3 and in mild distress EYES: Pupils are equal, round, and reactive to light and accommodation. Extraoccular muscles are intact bilaterally. There is no subconjunctival hemorrhage or exudate. NECK: Pain on palp of R sided cervical musculature. No change with axial load CHEST: Lungs are clear to auscultation bilaterally and free of wheezes, rales, or rhonchi. Heart rate is regular rhythm, there are no murmurs, clicks, rubs, or gallops. There is no chest wall tenderness. ABD: Abdomen is soft and nontender. There is no guarding or rebound. Bowel sounds are normal in all 4 quadrants. There is no mass or organomegaly. EXT: Full but painful range of motion of the right shoulder. Increased pain with empty can test as well as with palpation of upper thoracic musculature surrounding right scapula. SKIN: Warm, pink, and dry. No erythema or rash Initial Vital Signs Initial Vital Signs: Vital Signs Temperature 98.5 F 07/20/19 00:40 Pulse Rate 89 07/20/19 00:40 Respiratory Rate 16 07/20/19 00:40 Blood Pressure 136/101 H 07/20/19 00:40 Pulse Oximetry 99 07/20/19 00:40 Course Course Course Narrative: Patient offered sling and hydrocodone as well as Toradol in addition to the Flexeril. Patient has a sling at home already and takes Celebrex therefore does not need other NSAIDs. She states she does not do well with opioids hence her decision to not take hydrocodone Orders Ordered: Discontinued Medications Cyclobenzaprine HCl (Flexeril 10 Mg Prepack) 1 bottle [facility] ONE Stop: 07/20/19 01:34 Last Admin: 07/20/19 01:40 Dose: 1 bottle Documented by: YOANDY Vital Signs Vital signs: Vital Signs - 8 hr 07/20/19 00:40 07/20/19 01:45 Temperature 98.5 F Pulse Rate 89 87 Respiratory Rate 16 16 Blood Pressure 136/101 H 111/79 Pulse Oximetry 99 97 Discharge Plan Departure Patient Disposition: Home Clinical Impression: Muscle strain, shoulder region Qualifiers: Encounter type: initial encounter Laterality: right Qualified Code(s): S46.911A - Strain of unspecified muscle, fascia and tendon at shoulder and upper arm level, right arm, initial encounter Discharge Date/Time: 07/20/19 01:46 Instructions: DI for Shoulder Sprain Activity Restrictions/Additional Instructions: *You have been diagnosed with [right shoulder strain] *What to do: *Take medications as directed: Your prescription has been electronically transmitted to the [facility] in [place] at your request *Follow up with your primary care provider in 2-3 days, call for an appointment. Let them know you were seen in the Emergency Department and that we ask that you be seen in follow up *Return to ER if you should have any new, worsening or concerning symptoms, such as [ ] Prescriptions: New cyclobenzaprine 10 mg tablet 10 mg PO TID PRN (Reason: muscle spasm) Qty: 14 RF: 0 No Action methimazole 5 mg tablet 2.5 mg PO DAILY RF: 0 methylphenidate HCl 18 mg tablet extended release 24hr 18 mg PO .PM RF: 0 Chloraseptic Sore Throat 6-10 mg lozenge 1 lozenge MM Q2-4H PRNRF: 0 dextromethorphan HBr 15 mg/5 mL syrup 15 mg PO ONCE RF: 0 amoxicillin-pot clavulanate 875-125 mg tablet 1 tab PO BID Qty: 10 RF: 0 methylphenidate HCl 36 mg tablet extended release 24hr 36 mg PO DAILY RF: 0 tizanidine 2 mg capsule 2 mg PO DAILY RF: 0 celecoxib [Celebrex] 200 mg capsule 200 mg PO DAILY Qty: 90 RF: 2 Referrals: Gale Mathew DO [Primary Care Provider] -
== END 2019-07-20 01:46 | disposition home or self-care (01) ==
PROVIDERS: Emergency Provider Emergency Medicine; PCP Family Medicine
DX: S46.911A Strain of unspecified muscle, fascia and tendon at shoulder and upper arm level, right arm, initial encounter (principal)
CPT/HCPCS: 99281

== ENCOUNTER → 2020-02-06 17:15 | Outpatient (CLI) | payer BC, OTHER, SELFPAY ==
--- NOTE | 2020-02-06 17:17 | DI.RAD.S_ITS ---
PROCEDURE: XR FOOT RT MIN 3V INDICATIONS: direct blow top of foot, clinical concern for fx TECHNIQUE: 3 views of the foot were acquired. COMPARISON: None. FINDINGS: Bones: No fractures or dislocations. No suspicious bony lesions. Soft tissues: Distal soft tissue swelling is seen. IMPRESSION: No displaced fractures are seen on these plain films. If there is focal tenderness, or other clinical concern for a fracture not seen on these images in this patient with a given history of trauma, please consider a dedicated CT or a short-term followup plain film series (in 1-2 weeks) for further evaluation. Dictated by: Ralf Gray M.D. on 02/06/2020 at 16:54 Approved by: Ralf Gray M.D. on 02/06/2020 at 16:54
== END ==
PROVIDERS: PCP Family Medicine; Referring Provider Physician Assistant; Visit Provider Physician Assistant
DX: S99.921A Unspecified injury of right foot, initial encounter (principal); W22.8XXA Striking against or struck by other objects, initial encounter
CPT/HCPCS: 73630

== ENCOUNTER 2021-03-07 21:43 | Emergency (ER) | payer BC, OTHER, SELFPAY ==
[2021-03-07 21:46] VITALS: BP 115/64; PULSE 113; RESP 14; TEMP 36.8; O2SAT 97; BMI 30.2
[2021-03-07 21:51] VITALS: PULSE 76
[2021-03-07 22:03] VITALS: BP 137/90; PULSE 86
[2021-03-07 22:17] LABS: Add Manual Diff / Slide Review NO; Basophils Absolute Auto 0 /uL (0-100); Basophils Percent Auto 0.8 % (0-2); Eosinophils Absolute Auto 0 /uL (0-450); Eosinophils Percent Auto 0.1 % (2-4); Hematocrit 44.3 % (36-46); Hemoglobin 14.8 g/dL (12.0-16.0); Lymphocytes Absolute Auto 1200 /uL (1100-4500); Lymphocytes Percent Auto 21.1 % (25-40); Mean Corpuscular HGB Conc 33.6 % (30-36); Mean Corpuscular Hemoglobin 31.1 PG (26-34); Mean Corpuscular Volume 92.8 fL (80-100); Monocytes Absolute Auto 300 /uL (0-900); Monocytes Percent Auto 4.5 % (3-14); Neutrophils Absolute Auto 4400 /uL (1500-7000); Neutrophils Percent Auto 73.5 % (50-75); Platelet Count 139 X10^3/uL (150-400); Red Blood Cell Count 4.77 X10^6/uL (4.0-5.2); Red Cell Distribution Width 12.7 % (11.6-14.8); White Blood Cell Count 5.9 X10^3/uL (4.5-11.0)
[2021-03-07 22:23] LABS: INR 1.2 (0.9-1.3); Prothrombin Time 13.1 SECONDS (10.1-12.7)
[2021-03-07 22:26] LABS: Alanine Aminotransferase 20 IU/L (<35); Albumin 4.1 g/dL (3.5-5.0); Albumin Globulin Ratio 1.2 (1.0-2.8); Alkaline Phosphatase 53 U/L (38-126); Aspartate Aminotransferase 51 IU/L (14-36); Bilirubin Total 0.4 mg/dL (0.2-1.3); Blood Urea Nitrogen 10 mg/dL (7-17); Calcium 8.2 mg/dL (8.4-10.2); Carbon Dioxide 23 mmol/L (22-32); Chloride 99 mmol/L (98-107); Creatine Kinase 208 U/L (30-135); Estimated Glomerular Filt Rate > 60.0 mL/min (>60); Globulin 3.4 g/dL (1.7-4.1); Glucose 100 mg/dL (70-100); HEMOLYSIS < 15 (0-50); Potassium 3.6 mmol/L (3.4-5.1); Sodium 132 mmol/L (137-145); Total Protein 7.5 g/dL (6.3-8.2)
[2021-03-07 22:27] LABS: Lactate (Lactic Acid) 1.1 mmol/L (0.7-2.1)
[2021-03-07 22:37] LABS: Troponin I < 0.012 ng/mL (0.01-0.034)
[2021-03-07 22:41] LABS: CKMB % Relative Index 0.1 % (1.5-5.0); Creatine Kinase MB 0.31 ng/mL (<2.37)
[2021-03-07] MEDS: SODIUM CHLORIDE 0.9% 1,000 ML 150 ML IV (23:03)
--- NOTE | 2021-03-07 23:07 | ED.URI ---
HPI - URI/Sore Throat General Chief Complaint: Upper Respiratory Symptoms Stated Complaint: Thinks covid+ -getting worse- Time Seen by Provider: 03/07/21 23:05 Source: patient Mode of arrival: Ambulatory Limitations: no limitations History of Present Illness HPI Narrative: Patient is a 45-year-old female who not vaccinated for COVID presenting with symptoms of his nausea fever and cough. Recently tested positive for COVID. His he has had symptoms ongoing for the past 11 days. She is found to have COVID here in the emergency department. She denies any shortness of breath or chest pain. She has a dry nonproductive cough here. No significant shortness of breath. While she is being tested for COVID with nasopharyngeal swab she had a vasovagal episode she got pale dizzy and hypotensive. It quickly resolved. Related Data Home Medications Medication Instructions Recorded Confirmed methimazole 5 mg tablet 2.5 mg PO DAILY tab 11/23/18 02/06/20 benzocaine 6 mg-menthol 10 mg 1 lozenge MM Q2-4H PRN 05/08/19 05/08/19 lozenges (Chloraseptic Sore Throat) Previous Rx's Medication Instructions Recorded amoxicillin 875 mg-potassium 1 tab PO BID #10 tab 05/08/19 clavulanate 125 mg tablet ondansetron 4 mg disintegrating 4 mg PO Q8H PRN #10 tab 03/07/21 tablet Allergies Allergy/AdvReac Type Severity Reaction Status Date / Time No Known Drug Allergies Allergy Verified 03/07/21 21:46 Review of Systems Review of Systems Narrative: GENERAL: Denies chills, fatigue, malaise, fever, sweats, travel HEENT: Denies sinus pain, ear pain, sore throat, difficulty swallowing, neck pain RESPIRATORY: See HPI CARDIOVASCULAR: Denies chest pain, palpitations, orthopnea, edema GASTROINTESTINAL: Denies nausea, vomiting, abdominal pain, diarrhea, constipation, melena. : Denies dysuria, frequency, incontinence, hematuria, urinary retention, flank pain. MUSCULOSKELETAL: Denies weakness, joint pain, or bony pain SKIN: No rash, no erythema, no pruritus NEUROLOGIC: Denies weakness, dizziness, headache, numbness, change in speech, confusion PSYCHIATRIC: No concerning psychosocial issues. 12 point review of systems is negative except for those stated above and HPI Patient History Medical History (Updated 03/07/21 @ 23:20 by Florecita Bradley DO) Abnormal Pap smear of cervix Acne (~1991) Alopecia areata Anxiety (~1991) Asthma (~1979) Chickenpox (~1981) Chronic back pain (~2009) Depression (~1991) Eczema Eustachian tube dysfunction Frequent UTI Gestational diabetes Irregular menstrual cycle Migraines (~2007) Obesity Painful menstrual periods Right foot injury Seasonal allergies Substance abuse Tendonitis, Achilles Trochanteric bursitis Surgical History Anesthesia Foot contusion (~11/21/07) H/O tubal ligation Status post delivery (~1996) Status post delivery (~2002) Status post myringotomy with insertion of tube (~1984) Family History Child Age: 23 Autism Father Age: 71 Hepatitis C virus infection without hepatic coma, unspecified chronicity Substance use disorder Mother Age: 70 Diabetes mellitus Substance abuse Vertigo Osteoarthritis, unspecified osteoarthritis type, unspecified site Obesity, unspecified obesity severity, unspecified obesity type Uncomplicated asthma, unspecified asthma severity Secondary hypertension, unspecified Hyperlipidemia Grandfather Heart attack Grandmother Brain aneurysm Grandfather Heart attack Social History marital status: Smoking Status: Former smoker alcohol intake: current (ON OCCASION ) substance use type: does not use Smoking Status: Former smoker alcohol intake frequency: holidays/special occasions only Substance Use Type: does not use Exam Initial Vital Signs Initial Vital Signs: Vital Signs Temperature 98.2 F 03/07/21 21:46 Pulse Rate 113 H 03/07/21 21:46 Respiratory Rate 14 03/07/21 21:46 Blood Pressure 115/64 03/07/21 21:46 Pulse Oximetry 97 03/07/21 21:46 GENERAL: Patient appears to not feel well but is in no acute distress HEENT: Head atraumatic,EOMI, pupils reactive, face symmetric, [moist] mucous membranes CARDIOVASCULAR: Regular rate and rhythm without murmurs, rubs or gallops. RESPIRATORY: Breath sounds equal bilaterally, no wheezes rales or rhonchi. ABDOMEN: Soft, nontender. Normoactive bowel sounds all 4 quadrants. No guarding or rebound. EXTREMITIES: Normal range of motion, no clubbing or edema. Neurovascularly intact NEUROLOGICAL: Alert and oriented x4.Normal gait and speech. SKIN: Warm, dry, no laceration, no petechiae, no rashes or lesions. Course Orders Ordered: ED Orders 03/07/21 21:51 COVID19 -Nasal swab/Pre-Proc Stat 03/07/21 22:00 EKG-12 Lead Stat 03/07/21 22:06 Complete Blood Count AUTO DIFF Stat Comprehensive Metabolic Panel Stat Lactate (Lactic Acid) Stat Prothrombin Time INR Stat Troponin & CK Cardiac Panel Stat Discontinued Medications Sodium Chloride (Normal Saline 0.9%) 1,000 mls @ 150 mls/hr IV CONT MICHAELA Last Admin: 03/07/21 23:03 Dose: 150 mls/hr Documented by: ALINE Ondansetron HCl (Ondansetron 4 Mg/2 Ml Inj) 4 mg IV NOW ONE Stop: 03/07/21 23:35 Last Admin: 03/07/21 23:38 Dose: 4 mg Documented by: ALINE Vital Signs Vital signs: Vital Signs - 8 hr 03/07/21 21:46 03/07/21 21:51 03/07/21 22:03 Temperature 98.2 F Pulse Rate 113 H 76 86 Respiratory Rate 14 Blood Pressure 115/64 137/90 Pulse Oximetry 97 03/08/21 00:14 Temperature Pulse Rate 100 H Respiratory Rate 20 Blood Pressure 121/70 Pulse Oximetry 100 MDM - URI/Sore Throat Lab Data Result diagrams: 03/07/21 22:06 03/07/21 22:06 Labs: Lab Results 03/07/21 03/07/21 03/07/21 Range/Units 21:51 22:06 22:06 WBC 5.9 (4.5-11.0) X10^3/uL RBC 4.77 (4.0-5.2) X10^6/uL Hgb 14.8 (12.0-16.0) g/dL Hct 44.3 (36-46) % MCV 92.8 (80-100) fL MCH 31.1 (26-34) PG MCHC 33.6 (30-36) % RDW 12.7 (11.6-14.8) % Plt Count 139 L (150-400) X10^3/uL Neut % (Auto) 73.5 (50-75) % Lymph % (Auto) 21.1 L (25-40) % Baxter % (Auto) 4.5 (3-14) % Eos % (Auto) 0.1 L (2-4) % Baso % (Auto) 0.8 (0-2) % Neut # (Auto) 4400 (7865-0644) /uL Lymph # (Auto) 1200 (6782-6133) /uL Baxter # (Auto) 300 (0-900) /uL Eos # (Auto) 0 (0-450) /uL Baso # (Auto) 0 (0-100) /uL PT 13.1 H (10.1-12.7) SECONDS INR 1.2 (0.9-1.3) Sodium (137-145) mmol/L Potassium (3.4-5.1) mmol/L Chloride (98-107) mmol/L Carbon Dioxide (22-32) mmol/L BUN (7-17) mg/dL Creatinine (0.52-1.04) mg/dL Estimated GFR (>60) mL/min BUN/Creatinine Ratio (6-22) Glucose (70-100) mg/dL Lactate (0.7-2.1) mmol/L Calcium (8.4-10.2) mg/dL Total Bilirubin (0.2-1.3) mg/dL AST (14-36) IU/L ALT (<35) IU/L Alkaline Phosphatase (38-126) U/L Total Creatine Kinase (30-135) U/L CK-MB (CK-2) (<2.37) ng/mL CK-MB (CK-2) Rel Index (1.5-5.0) % Troponin I (0.01-0.034) ng/mL Total Protein (6.3-8.2) g/dL Albumin (3.5-5.0) g/dL Globulin (1.7-4.1) g/dL Albumin/Globulin Ratio (1.0-2.8) SARS-CoV-2 (PCR) Positive H (Negative) 03/07/21 03/07/21 Range/Units 22:06 22:06 WBC (4.5-11.0) X10^3/uL RBC (4.0-5.2) X10^6/uL Hgb (12.0-16.0) g/dL Hct (36-46) % MCV (80-100) fL MCH (26-34) PG MCHC (30-36) % RDW (11.6-14.8) % Plt Count (150-400) X10^3/uL Neut % (Auto) (50-75) % Lymph % (Auto) (25-40) % Baxter % (Auto) (3-14) % Eos % (Auto) (2-4) % Baso % (Auto) (0-2) % Neut # (Auto) (1813-4298) /uL Lymph # (Auto) (8339-4091) /uL Baxter # (Auto) (0-900) /uL Eos # (Auto) (0-450) /uL Baso # (Auto) (0-100) /uL PT (10.1-12.7) SECONDS INR (0.9-1.3) Sodium 132 L (137-145) mmol/L Potassium 3.6 (3.4-5.1) mmol/L Chloride 99 (98-107) mmol/L Carbon Dioxide 23 (22-32) mmol/L BUN 10 (7-17) mg/dL Creatinine 0.77 (0.52-1.04) mg/dL Estimated GFR > 60.0 (>60) mL/min BUN/Creatinine Ratio 13.0 (6-22) Glucose 100 (70-100) mg/dL Lactate 1.1 (0.7-2.1) mmol/L Calcium 8.2 L (8.4-10.2) mg/dL Total Bilirubin 0.4 (0.2-1.3) mg/dL AST 51 H (14-36) IU/L ALT 20 (<35) IU/L Alkaline Phosphatase 53 (38-126) U/L Total Creatine Kinase 208 H (30-135) U/L CK-MB (CK-2) 0.31 (<2.37) ng/mL CK-MB (CK-2) Rel Index 0.1 L (1.5-5.0) % Troponin I < 0.012 (0.01-0.034) ng/mL Total Protein 7.5 (6.3-8.2) g/dL Albumin 4.1 (3.5-5.0) g/dL Globulin 3.4 (1.7-4.1) g/dL Albumin/Globulin Ratio 1.2 (1.0-2.8) SARS-CoV-2 (PCR) (Negative) Point of Care Testing Glucose POC 91 ECG Data Interpretation: Normal sinus rhythm rate 94 NE interval 146 QRS 76 QTC 447 MDM Narrative Medical decision making narrative: Patient had workup for the syncopal episode home. However most likely a vasovagal reaction secondary to the nasopharyngeal swab. Blood pressure is back to normal. She is not hypoxic does not need any hospitalization at this time. She should start to feel better here shortly I suspect. I have explained home monitoring in when to return to emergency department Discharge Plan Departure Patient Disposition: Home Clinical Impression: COVID-19 Instructions: DI for COVID-19 (Suspected or Confirmed ) Activity Restrictions/Additional Instructions: * if you have not yet been vaccinated is still recommended and encouraged that you do so once your infection has passed You may take Zofran 4 mg every 8 hours as needed for nausea or vomiting. [facility] Please increase fluid as tolerated At home: -Monitor oxygen with pulse oximeter. -Wash hands frequently. -Stay isolated at home please follow the isolation instructions below. -Increase fluid intake. -you may take Tylenol as directed if needed for pain or fever Emergency warning signs for COVID-19: - Difficulty breathing or shortness of breath, oxygen less than 90% - Persistent pain or pressure in the chest - New confusion or inability to arouse - Bluish lips or face CDC Guidelines for home isolation: - Stay away from others - Limit contact with pets and animals: If you must care for a pet, wash your hands before and after interacting with them - Wear a mask while in public all places - Cover your mouth and nose with a tissue when you cough or sneeze. Dispose of tissues in a lined trash can and wash your hands immediately with soap and water for at least 20 seconds. If soap and water are not available, clean hands with alcohol-based hand cabin supervisor that contains at least 60% alcohol. - Clean your hands often with soap and water for at least 20 seconds - Avoid touching your eyes, nose and mouth with unwashed hands - Do not share dishes, drinking glasses, cups, eating utensils, towels, or bedding with other people in your home. After using these items, wash them thoroughly with soap and water or put in the tank truck engine mechanic. - Clean high-touch surfaces in your isolation area (?sick room? and bathroom) every day; let a caregiver clean and disinfect high-touch surfaces in other areas of the home. Clean the area or item with soap and water or another detergent if it is dirty. Then, use a household disinfectant. Prescriptions: New ondansetron 4 mg tablet,disintegrating 4 mg PO Q8H PRN (Reason: nausea and vomiting) Qty: 10 RF: 0 No Action methimazole 5 mg tablet 2.5 mg PO DAILY RF: 0 Chloraseptic Sore Throat 6-10 mg lozenge 1 lozenge MM Q2-4H PRNRF: 0 amoxicillin-pot clavulanate 875-125 mg tablet 1 tab PO BID Qty: 10 RF: 0 Referrals: Gale Mathew DO [Primary Care Provider] -
[2021-03-07] MEDS: ONDANSETRON 4 MG/2 ML INJ IV (23:38)
[2021-03-08 00:14] VITALS: BP 121/70; PULSE 100; RESP 20; O2SAT 100
[2021-03-08 13:24] LABS: COVID19 -Nasal RAPID POSITIVE (Negative)
--- NOTE | 2021-03-12 14:10 | PC.NURSE ---
late entry- IV Fluids were DC'd at 0010 before patient was DC'd.
== END 2021-03-08 00:18 | disposition home or self-care (01) ==
PROVIDERS: Emergency Provider Emergency Medicine; PCP Family Medicine
DX: U07.1 COVID-19 (principal); R55 Syncope and collapse
CPT/HCPCS: 36415; 80053; 82550; 82553; 82962; 83605; 84484; 85025; 85610; 87635; 93005; 93010; 96361; 96374; 99284; C9803; J2405

== ENCOUNTER 2021-03-09 15:43 | Emergency (ER) | payer BC, OTHER, SELFPAY ==
[2021-03-09 15:48] VITALS: BP 113/75; PULSE 104; RESP 18; TEMP 36.1; O2SAT 96
--- NOTE | 2021-03-09 15:54 | DI.RAD.S_ITS ---
PROCEDURE: XR CHEST 2V INDICATIONS: shortness of breath- COVID+ TECHNIQUE: 2 views of the chest were acquired. COMPARISON: None. FINDINGS: Surgical changes and devices: None. Lungs and pleura: Subtle patchy airspace opacities in the lung bases, left greater than right. No pleural effusions or pneumothorax. Mediastinum: Mediastinal contours are normal. Heart size is normal. Bones and chest wall: No suspicious bony abnormalities. Soft tissues appear unremarkable. IMPRESSION: Bilateral basilar airspace opacities, left greater than right. Findings likely infectious. Dictated by: Porfirio Rodrigez M.D. on 03/09/2021 at 16:16 Approved by: Porfirio Rodrigez M.D. on 03/09/2021 at 16:16
[2021-03-09 16:32] LABS: Add Manual Diff / Slide Review NO; Basophils Absolute Auto 0 /uL (0-100); Basophils Percent Auto 0.6 % (0-2); Eosinophils Absolute Auto 0 /uL (0-450); Eosinophils Percent Auto 0.2 % (2-4); Hematocrit 42.6 % (36-46); Hemoglobin 14.2 g/dL (12.0-16.0); Lymphocytes Absolute Auto 900 /uL (1100-4500); Lymphocytes Percent Auto 28.2 % (25-40); Mean Corpuscular HGB Conc 33.4 % (30-36); Mean Corpuscular Hemoglobin 31.1 PG (26-34); Mean Corpuscular Volume 93.4 fL (80-100); Monocytes Absolute Auto 400 /uL (0-900); Monocytes Percent Auto 12.9 % (3-14); Neutrophils Absolute Auto 1900 /uL (1500-7000); Neutrophils Percent Auto 58.1 % (50-75); Platelet Count 157 X10^3/uL (150-400); Red Blood Cell Count 4.56 X10^6/uL (4.0-5.2); Red Cell Distribution Width 12.6 % (11.6-14.8); White Blood Cell Count 3.2 X10^3/uL (4.5-11.0)
[2021-03-09 16:39] LABS: Alanine Aminotransferase 46 IU/L (<35); Albumin 3.9 g/dL (3.5-5.0); Albumin Globulin Ratio 1.1 (1.0-2.8); Alkaline Phosphatase 54 U/L (38-126); Aspartate Aminotransferase 83 IU/L (14-36); BUN Creatinine Ratio 16.1 (6-22); Bilirubin Total 0.4 mg/dL (0.2-1.3); Blood Urea Nitrogen 10 mg/dL (7-17); Calcium 8.4 mg/dL (8.4-10.2); Carbon Dioxide 23 mmol/L (22-32); Chloride 104 mmol/L (98-107); Estimated Glomerular Filt Rate > 60.0 mL/min (>60); Globulin 3.4 g/dL (1.7-4.1); Glucose 77 mg/dL (70-100); HEMOLYSIS < 15 (0-50); Lactate (Lactic Acid) 0.8 mmol/L (0.7-2.1); Potassium 3.6 mmol/L (3.4-5.1); Sodium 138 mmol/L (137-145); Total Protein 7.3 g/dL (6.3-8.2)
--- NOTE | 2021-03-09 17:09 | ED_ITS ---
HPI - General Adult General Chief complaint: Shortness of Breath/Dyspnea Stated complaint: COV+ OX LEVEL 88, CANT WALK,EXHAUSTED, Time Seen by Provider: 03/09/21 16:54 Source: patient Mode of arrival: Wheelchair History of Present Illness HPI narrative: Patient is a 45-year-old female. On vaccinated against COVID-19. Started having symptoms approximately 13 days ago. A couple days ago was tested and is positive for COVID-19. She states that at home her oxygen saturations were 88. She is feeling exhausted. Is coughing. This having body aches. Related Data Home Medications Medication Instructions Recorded Confirmed methimazole 5 mg tablet 2.5 mg PO DAILY tab 11/23/18 02/06/20 benzocaine 6 mg-menthol 10 mg 1 lozenge MM Q2-4H PRN 05/08/19 05/08/19 lozenges (Chloraseptic Sore Throat) Previous Rx's Medication Instructions Recorded amoxicillin 875 mg-potassium 1 tab PO BID #10 tab 05/08/19 clavulanate 125 mg tablet ondansetron 4 mg disintegrating 4 mg PO Q8H PRN #10 tab 03/07/21 tablet Allergies Allergy/AdvReac Type Severity Reaction Status Date / Time No Known Drug Allergies Allergy Verified 03/07/21 21:46 Review of Systems Constitutional Constitutional: Reports as per HPI ENT Ears, Nose, Mouth, and Throat: Reports system reviewed and no additional complaints, except as documented Cardiovascular Cardiovascular: Reports system reviewed and no additional complaints, except as documented Respiratory Respiratory: Reports as per HPI Gastrointestinal Gastrointestinal: Reports system reviewed and no additional complaints, except as documented Genitourinary Genitourinary: Reports system reviewed and no additional complaints, except as documented Integumentary/Breasts Skin/Breast: Reports system reviewed and no additional complaints, except as documented Neurologic Neurologic: Reports system reviewed and no additional complaints, except as documented Hematologic/Lymphatic On Anticoagulants: No Allergic/Immunologic Allergic/Immunologic: Reports system reviewed and no additional complaints, except as documented Patient History Medical History Abnormal Pap smear of cervix Acne (~1991) Alopecia areata Anxiety (~1991) Asthma (~1979) Chickenpox (~1981) Chronic back pain (~2009) Depression (~1991) Eczema Eustachian tube dysfunction Frequent UTI Gestational diabetes Irregular menstrual cycle Migraines (~2007) Obesity Painful menstrual periods Right foot injury Seasonal allergies Substance abuse Tendonitis, Achilles Trochanteric bursitis Surgical History Anesthesia Foot contusion (~11/21/07) H/O tubal ligation Status post delivery (~1996) Status post delivery (~2002) Status post myringotomy with insertion of tube (~1984) Family History Child Age: 23 Autism Father Age: 71 Hepatitis C virus infection without hepatic coma, unspecified chronicity Substance use disorder Mother Age: 70 Diabetes mellitus Substance abuse Vertigo Osteoarthritis, unspecified osteoarthritis type, unspecified site Obesity, unspecified obesity severity, unspecified obesity type Uncomplicated asthma, unspecified asthma severity Secondary hypertension, unspecified Hyperlipidemia Grandfather Heart attack Grandmother Brain aneurysm Grandfather Heart attack Social History marital status: Smoking Status: Former smoker alcohol intake: current (ON OCCASION ) substance use type: does not use Smoking Status: Former smoker alcohol intake frequency: holidays/special occasions only Substance Use Type: does not use Exam Initial Vital Signs Initial Vital Signs: Vital Signs Temperature 96.9 F L 03/09/21 15:48 Pulse Rate 104 H 03/09/21 15:48 Respiratory Rate 18 03/09/21 15:48 Blood Pressure 113/75 03/09/21 15:48 Pulse Oximetry 96 03/09/21 15:48 Const General: other (Uncomfortable.) HENMT Head: normal to inspection and normocephalic Resp Effort & Inspection: normal respiratory effort Auscultation: clear to auscultation bilaterally Cardio Rate: regular rate Rhythm: regular rhythm GI Inspection: normal to inspection Skin General: no rashes or lesions noted Neuro General: patient alert, patient awake, patient oriented x3 and moves all extremities Extrem General: normal to inspection Psych Appearance: grossly normal Course Orders Ordered: ED Orders 03/09/21 15:54 XR chest 2V Stat Measure peak expiratory flow ONCE RT Consult Eval and Treat Now 03/09/21 16:19 Complete Blood Count AUTO DIFF Stat Comprehensive Metabolic Panel Stat Lactate (Lactic Acid) Stat Vital Signs Vital signs: Vital Signs - 8 hr 03/09/21 15:48 03/09/21 17:18 Temperature 96.9 F L Pulse Rate 104 H 85 Respiratory Rate 18 16 Blood Pressure 113/75 Pulse Oximetry 96 94 Medical Decision Making Lab Data Lab results reviewed: Yes I reviewed the patient's lab results. Result diagrams: 03/09/21 16:19 03/09/21 16:19 Labs: Lab Results 03/09/21 03/09/21 03/09/21 Range/Units 16:19 16:19 16:19 WBC 3.2 L (4.5-11.0) X10^3/uL RBC 4.56 (4.0-5.2) X10^6/uL Hgb 14.2 (12.0-16.0) g/dL Hct 42.6 (36-46) % MCV 93.4 (80-100) fL MCH 31.1 (26-34) PG MCHC 33.4 (30-36) % RDW 12.6 (11.6-14.8) % Plt Count 157 (150-400) X10^3/uL Neut % (Auto) 58.1 (50-75) % Lymph % (Auto) 28.2 (25-40) % [place] % (Auto) 12.9 (3-14) % Eos % (Auto) 0.2 L (2-4) % Baso % (Auto) 0.6 (0-2) % Neut # (Auto) 1900 (7954-5361) /uL Lymph # (Auto) 900 L (4660-0862) /uL [place] # (Auto) 400 (0-900) /uL Eos # (Auto) 0 (0-450) /uL Baso # (Auto) 0 (0-100) /uL Sodium 138 (137-145) mmol/L Potassium 3.6 (3.4-5.1) mmol/L Chloride 104 (98-107) mmol/L Carbon Dioxide 23 (22-32) mmol/L BUN 10 (7-17) mg/dL Creatinine 0.62 (0.52-1.04) mg/dL Estimated GFR > 60.0 (>60) mL/min BUN/Creatinine Ratio 16.1 (6-22) Glucose 77 (70-100) mg/dL Lactate 0.8 (0.7-2.1) mmol/L Calcium 8.4 (8.4-10.2) mg/dL Total Bilirubin 0.4 (0.2-1.3) mg/dL AST 83 H (14-36) IU/L ALT 46 H (<35) IU/L Alkaline Phosphatase 54 (38-126) U/L Total Protein 7.3 (6.3-8.2) g/dL Albumin 3.9 (3.5-5.0) g/dL Globulin 3.4 (1.7-4.1) g/dL Albumin/Globulin Ratio 1.1 (1.0-2.8) Imaging Data Chest x-ray: Radiologist's Impression: [address] [id number] ReportSigned Patient: Jessica Ackerman JMR#: [id number]: [id number]:[id number]/Sex: 45 / FDate of Service: 03/09/21Loc: EDAccession Number: [id number] Procedure: XR chest 2V Ordering Provider: Carlos Enrique Matos D.O. PROCEDURE: XR CHEST 2V INDICATIONS: shortness of breath- COVID+ TECHNIQUE: 2 views of the chest were acquired. COMPARISON: None. FINDINGS: Surgical changes and devices: None. Lungs and pleura: Subtle patchy airspace opacities in the lung bases, left greater than right. No pleural effusions or pneumothorax. Mediastinum: Mediastinal contours are normal. Heart size is normal. Bones and chest wall: No suspicious bony abnormalities. Soft tissues appear unremarkable. IMPRESSION: Bilateral basilar airspace opacities, left greater than right. Findings likely infectious. Dictated by: Porfirio Rodrigez M.D. on 03/09/2021 at 16:16 Approved by: Porfirio Rodrigez M.D. on 03/09/2021 at 16:16 [facility] Narrative Medical decision making narrative: Patient does look like she does not feel well although she is positive for COVID. She is not hypoxic. She is not tachypneic. She is not tachycardic. Chest x-ray has the appearance of someone who has COVID-19. No indication for antibiotics. Patient does have a way of checking her oxygen saturations at home. She is not hypoxic here. No indication for admission to the hospital. She was given return precautions and follow-up instructions. She expressed understanding and agreement with plan. Discharge Plan Departure Patient Disposition: Home Clinical Impression: COVID-19 Instructions: DI for COVID-19 (Suspected or Confirmed ) Activity Restrictions/Additional Instructions: Recommend that you continue to take Tylenol for any body aches or fevers. Continue to take your oxygen saturations at home and return to the emergency department if your saturations are consistently below 90. You do need to quarantine yourself until you have been symptom-free for 24 hours. Prescriptions: No Action methimazole 5 mg tablet 2.5 mg PO DAILY RF: 0 Chloraseptic Sore Throat 6-10 mg lozenge 1 lozenge MM Q2-4H PRNRF: 0 amoxicillin-pot clavulanate 875-125 mg tablet 1 tab PO BID Qty: 10 RF: 0 ondansetron 4 mg tablet,disintegrating 4 mg PO Q8H PRN (Reason: nausea and vomiting) Qty: 10 RF: 0 Referrals: Gale Mathew DO [Primary Care Provider] -
[2021-03-09 17:18] VITALS: PULSE 85; RESP 16; O2SAT 94
== END 2021-03-09 17:30 | disposition home or self-care (01) ==
PROVIDERS: Emergency Provider Emergency Medicine; PCP Family Medicine
DX: U07.1 COVID-19 (principal); R06.02 Shortness of breath
CPT/HCPCS: 36415; 71046; 80053; 83605; 85025; 99281; 99284

== ENCOUNTER → 2021-03-26 16:12 | Outpatient (CLI) | payer BC, OTHER, SELFPAY ==
--- NOTE | 2021-03-26 16:14 | DI.RAD.S_ITS ---
PROCEDURE: XR CHEST 2V INDICATIONS: surveilance for covid TECHNIQUE: 2 views of the chest were acquired. COMPARISON: [facility], CR, XR CHEST 2V, 03/09/2021, 15:54. [facility], CR, XR CHEST 1V, 09/20/2018, 16:44. FINDINGS: Surgical changes and devices: None. Lungs and pleura: Lungs are abnormal with alveolar infiltration, slightly greater on the left than the right in this patient with reported atypical/viral pneumonia. This has slightly worsened. No pleural effusions or pneumothorax. Mediastinum: Mediastinal contours are normal. Heart size is normal. Bones and chest wall: No suspicious bony abnormalities. Soft tissues appear unremarkable. IMPRESSION: Considering small differences in technique there has been only a slight interval worsening of alveolar infiltration with reference to the study from 03/09/21. Dictated by: Hernandez Harp M.D. on 03/26/2021 at 16:50 Approved by: Hernandez Harp M.D. on 03/26/2021 at 16:52
== END ==
PROVIDERS: PCP Family Medicine; Referring Provider Family Medicine; Visit Provider Family Medicine
DX: U07.1 COVID-19 (principal)
CPT/HCPCS: 71046

== ENCOUNTER → 2021-04-19 07:56 | Outpatient (CLI) | payer BC, OTHER, SELFPAY ==
--- NOTE | 2021-04-19 07:58 | DI.ECHO.S_ITS ---
[facility]---------+ [facility] +---------+ : : [address] : : : : [id number] : : : : Phone: [phone]+ Echocardiogram Report + + :Name: RADHA HUFFMAN Study Date: 04/19/2021 Height: 69 in : :[facility] ReadingLocation: Weight: 195 lb : : Gender: Female BSA: 2.0 m2 : :: 1975 Age: 45 yrs BP: 135/100 mmHg: :Reason For Study: TACHYCARDIA , SOB POST COVID : :Ordering Physician: JAROCHO, : :YANI Performed By: Loretta Mccray : :Referring: YANI AVENDAÑO : + + Interpretation Summary Normal echo study. Procedure: A two-dimensional transthoracic echocardiogram with color flow and Doppler was performed. The study quality was technically adequate. There is no prior echocardiogram noted for this patient. The patient was in sinus rhythm with heart rates between 74-89 bpm during the exam. Left Ventricle: The left ventricle is normal in size and wall thickness. The ejection fraction is estimated to be 60-65%. Left ventricular wall motion is normal. Diastolic parameters suggest probable normal left ventricular diastolic function and normal filling pressures. Right Ventricle: The right ventricle is normal in size and function. Atria: The left atrial size is normal. Right atrial size is normal. There is no Doppler evidence for an interatrial shunt. Mitral Valve: The mitral valve is normal in structure and function. There is trace mitral regurgitation. Aortic Valve: The aortic valve is trileaflet. The aortic valve opens well. There is no aortic valve stenosis. No aortic regurgitation is present. Tricuspid Valve: The tricuspid valve is normal in structure and function. There is trace tricuspid regurgitation. Right ventricular systolic pressure is estimated to be 21 mmHg plus the clinically estimated CVP which cannot be estimated on this exam. Pulmonic Valve: The pulmonic valve is not well seen, but is grossly normal. There is a trace or physiologic amount of pulmonic regurgitation. Great Vessels: The aortic root is normal size. The dimensions of the ascending aorta are normal. The inferior vena cava was not well visualized. Pericardium/ Pleura There is no pericardial effusion. There is no pleural effusion. MMode/2D Measurements & Calculations LVIDd: 4.2 cm LVOT diam: 2.0 cm LVIDs: 2.8 cm Ao root diam: 2.9 cm FS: 32.9 % asc Aorta Diam: 3.2 cm IVSd: 0.89 cm Ao Arch Diam (Prox Trans): 2.7 cm LVPWd: 0.81 cm LV aguiar. diameter/BSA (cm/m^2): 2.1 LV sys. diameter/BSA (cm/m^2): 1.4 LA A2 area: 17.1 cm2 RA long axis: 4.4 cm LA A4 area: 15.8 cm2 RA area: 14.2 cm2 LA length (vol): 4.7 cm RA vol: 39.3 ml LA vol: 48.5 ml RA : 19.3 ml/m2 LA vol index: 23.8 ml/m2 RVD1 (basal): 3.1 cm TAPSE: 1.9 cm Doppler Measurements & Calculations Ao V2 max: 125.3 cm/sec LVOT Max Ryan: 90.5 cm/sec Ao V2 mean: 84.1 cm/sec LV V1 max P.3 mmHg Ao max P.3 mmHg LV V1 VTI: 15.8 cm Ao mean P.3 mmHg MARY ALICE(I,D): 2.3 cm2 Ao V2 VTI: 22.1 cm MARY ALICE(V,D): 2.3 cm2 sev ratio: 0.72 MARY ALICE indexed to BSA (cm^2/m^2): 1.1 MV E max ryan: 51.0 cm/sec TR max ryan: 230.5 cm/sec MV A max ryan: 45.7 cm/sec TR max P.3 mmHg MV E/A: 1.1 PA V2 max: 115.2 cm/sec Med Peak E' Ryan: 9.3 cm/sec PA V2 mean: 90.2 cm/sec E/E' med: 5.5 PA mean P.5 mmHg Lat Peak E' Ryan: 10.3 cm/sec PA pr(Accel): 31.0 mmHg E/E' lat: 4.9 E/e' average: 5.2 MV dec time: 0.17 sec SV(LVOT): 51.1 ml Electronically signed by: Julia Riggins on Reading Physician:04/19/2021 11:38 AM
== END ==
PROVIDERS: PCP Family Medicine; Referring Provider Family Medicine; Visit Provider Family Medicine
DX: U07.1 COVID-19 (principal); R06.02 Shortness of breath; T50.B95A Adverse effect of other viral vaccines, initial encounter; R00.0 Tachycardia, unspecified
CPT/HCPCS: 93306

== ENCOUNTER → 2021-05-14 15:27 | Outpatient (CLI) | payer BC, OTHER, SELFPAY ==
[2021-05-14 17:12] LABS: Add Manual Diff / Slide Review NO; Basophils Absolute Auto 100 /uL (0-100); Basophils Percent Auto 1.2 % (0-2); Eosinophils Absolute Auto 200 /uL (0-450); Eosinophils Percent Auto 2.9 % (2-4); Hematocrit 42.6 % (36-46); Hemoglobin 14.2 g/dL (12.0-16.0); Lymphocytes Absolute Auto 2200 /uL (1100-4500); Lymphocytes Percent Auto 27.9 % (25-40); Mean Corpuscular HGB Conc 33.3 % (30-36); Mean Corpuscular Hemoglobin 31.2 PG (26-34); Mean Corpuscular Volume 93.8 fL (80-100); Monocytes Absolute Auto 600 /uL (0-900); Monocytes Percent Auto 7.3 % (3-14); Neutrophils Absolute Auto 4800 /uL (1500-7000); Neutrophils Percent Auto 60.7 % (50-75); Platelet Count 218 X10^3/uL (150-400); Red Blood Cell Count 4.55 X10^6/uL (4.0-5.2); Red Cell Distribution Width 13.5 % (11.6-14.8); White Blood Cell Count 7.9 X10^3/uL (4.5-11.0)
[2021-05-14 17:51] LABS: Alanine Aminotransferase 15 IU/L (<35); Albumin 4.3 g/dL (3.5-5.0); Albumin Globulin Ratio 1.3 (1.0-2.8); Alkaline Phosphatase 71 U/L (38-126); Aspartate Aminotransferase 23 IU/L (14-36); BUN Creatinine Ratio 13.5 (6-22); Bilirubin Total 0.2 mg/dL (0.2-1.3); Blood Urea Nitrogen 10 mg/dL (7-17); Calcium 9.2 mg/dL (8.4-10.2); Carbon Dioxide 26 mmol/L (22-32); Chloride 104 mmol/L (98-107); Estimated Glomerular Filt Rate > 60.0 mL/min (>60); Globulin 3.2 g/dL (1.7-4.1); Glucose 101 mg/dL (70-100); HEMOLYSIS < 15 (0-50); Potassium 3.8 mmol/L (3.4-5.1); Sodium 139 mmol/L (137-145); Total Protein 7.5 g/dL (6.3-8.2)
[2021-05-14 18:07] LABS: Free T3, Triiodothyronine Free 3.71 pg/mL (2.77-5.27)
[2021-05-14 18:20] LABS: Thyroid Stimulating Hormone 1.71 uIU/mL (0.47-4.68)
== END ==
PROVIDERS: PCP Family Medicine; Referring Provider Family Medicine; Visit Provider Family Medicine
DX: E05.90 Thyrotoxicosis, unspecified without thyrotoxic crisis or storm (principal); R00.0 Tachycardia, unspecified; R06.02 Shortness of breath; U07.1 COVID-19; T50.B95A Adverse effect of other viral vaccines, initial encounter
CPT/HCPCS: 36415; 80053; 84439; 84443; 84481; 85025

== ENCOUNTER → 2021-06-28 11:15 | Outpatient (CLI) | payer BC, OTHER, SELFPAY ==
--- NOTE | 2021-06-28 11:16 | DI.RAD.S_ITS ---
PROCEDURE: XR CHEST 2V INDICATIONS: covid 19 surveilance TECHNIQUE: 2 views of the chest were acquired. COMPARISON: [facility], , XR CHEST 2V, 03/26/2021, 16:18. FINDINGS: Surgical changes and devices: None. Lungs and pleura: Improved aeration of the left mid/lower lung zone, residual densities. No pleural effusions or pneumothorax. Mediastinum: Mediastinal contours are normal. Heart size is normal. Bones and chest wall: No suspicious bony abnormalities. Soft tissues appear unremarkable. IMPRESSION: Improved aeration. Dictated by: Donnell Reyes M.D. on 06/28/2021 at 11:38 Approved by: Donnell Reyes M.D. on 06/28/2021 at 11:39
== END ==
PROVIDERS: PCP Family Medicine; Referring Provider Family Medicine; Visit Provider Family Medicine
DX: R06.02 Shortness of breath (principal); U07.1 COVID-19; T50.B95A Adverse effect of other viral vaccines, initial encounter
CPT/HCPCS: 71046

== ENCOUNTER → 2021-09-06 11:42 | Outpatient (CLI) | payer BC, OTHER, SELFPAY ==
--- NOTE | 2021-09-06 11:44 | DI.CT.S_ITS ---
PROCEDURE: CT CHEST WO CON INDICATIONS: shortness of breath, persistent infiltrates TECHNIQUE: Noncontrast 5 mm thick sections acquired from the pulmonary apices to the posterior costophrenic angles. 1 mm lung window, 5 mm thick coronal and sagittal and 7 mm axial MIP reformats were then acquired. For radiation dose reduction, the following was used: automated exposure control, adjustment of mA and/or kV according to patient size. COMPARISON: [facility], CR, XR CHEST 2V, 03/09/2021, 15:54. [facility], CR, XR CHEST 2V, 03/26/2021, 16:18. [facility], CR, XR CHEST 2V, 06/28/2021, 11:14. FINDINGS: Image quality: Excellent. Lungs and pleura: Subtle peripheral ground-glass opacities in reticulations are seen in the lateral and posterior left upper and lower lobes as well as the superior segment of the right lower lobe. More subtle findings are also present in the lateral portions of the right upper and middle lobes. Findings have decreased when compared to the radiographs from 03/26/2021. No pleural effusions or pneumothorax. Central and peripheral airways are patent and normal in caliber. Mediastinum: Heart size is normal. No pericardial effusion. No mediastinal adenopathy by size criteria. Thoracic aorta and central pulmonary arteries are normal in size. Esophagus is normal in caliber. Small hiatal hernia. Bones and chest wall: No suspicious bony lesions. No vertebral body compression fractures. No axillary or supraclavicular adenopathy by size criteria. Thyroid appears normal. Abdomen: Visualized upper abdominal solid organs and bowel loops appear normal in the absence of contrast. IMPRESSION: Subtle peripheral ground-glass opacities and reticulations in both lungs are most likely due to a resolving infectious or inflammatory process or the development of mild post-infectious/inflammatory scarring or fibrosis. Findings have overall decreased when compared to the radiographs from 03/26/2021 and likely 06/28/2021 given differences in modality. Dictated by: Erlin Manning M.D. on 09/06/2021 at 13:25 Approved by: Erlin Manning M.D. on 09/06/2021 at 13:32
== END ==
PROVIDERS: PCP Family Medicine; Referring Provider Family Medicine; Visit Provider Family Medicine
DX: U07.1 COVID-19 (principal); R06.00 Dyspnea, unspecified
CPT/HCPCS: 71250

== ENCOUNTER → 2021-11-15 07:35 | Outpatient (CLI) | payer BC, OTHER, SELFPAY ==
--- NOTE | 2021-11-15 | DI.CT.S_ITS ---
PROCEDURE: CT CHEST WO CON INDICATIONS: Shortness of breath TECHNIQUE: Noncontrast 5 mm thick sections acquired from the pulmonary apices to the posterior costophrenic angles. 1 mm lung window, 5 mm thick coronal and sagittal and 7 mm axial MIP reformats were then acquired. For radiation dose reduction, the following was used: automated exposure control, adjustment of mA and/or kV according to patient size. COMPARISON: [facility], CR, XR CHEST 2V, 03/26/2021, 16:18. [facility], CR, XR CHEST 2V, 03/09/2021, 15:54. [facility], CR, XR CHEST 2V, 06/28/2021, 11:14. [facility], CT, CT CHEST WO CON, 09/06/2021, 11:56. FINDINGS: Image quality: Excellent. Lungs and pleura: There are persistent areas of peripheral indistinct clustered ground-glass opacities and curvilinear opacities. These appear similar in appearance and distribution compared to the prior study of 09/06/2021. No new consolidation or other new acute airspace opacities. No pleural effusions or pneumothorax. Central and peripheral airways are patent and normal in caliber. Mediastinum: Heart size is normal. No pericardial effusion. No mediastinal adenopathy by size criteria. Thoracic aorta and central pulmonary arteries are normal in size. Esophagus is normal in caliber. There is a small hiatal hernia. Bones and chest wall: No suspicious bony lesions. No vertebral body compression fractures. No axillary or supraclavicular adenopathy by size criteria. The visualized thyroid demonstrates no discrete nodules. Abdomen: Visualized upper abdominal solid organs and bowel loops appear normal in the absence of contrast. IMPRESSION: 1. Persistent bilateral peripheral ground-glass and curvilinear opacities which appears similar to the prior CT study. These likely represent residual sequelae of peripheral airspace opacities seen on the prior x-ray studies from 2020 and likely represent scarring related to prior pneumonia. Recommend continued follow-up in 6 months to demonstrate stability or resolution. 2. No acute consolidation. Dictated by: Stephen Pizano M.D. on 11/15/2021 at 9:16 Approved by: Stephen Pizano M.D. on 11/15/2021 at 9:30
[2021-11-15 08:43] LABS: Add Manual Diff / Slide Review NO; Basophils Absolute Auto 0 /uL (0-100); Basophils Percent Auto 0.3 % (0-2); Eosinophils Absolute Auto 200 /uL (0-450); Eosinophils Percent Auto 2.8 % (2-4); Hematocrit 41.9 % (36-46); Lymphocytes Absolute Auto 1500 /uL (1100-4500); Lymphocytes Percent Auto 23.7 % (25-40); Mean Corpuscular HGB Conc 33.3 % (30-36); Mean Corpuscular Hemoglobin 31.5 PG (26-34); Mean Corpuscular Volume 94.4 fL (80-100); Monocytes Absolute Auto 400 /uL (0-900); Monocytes Percent Auto 6.8 % (3-14); Neutrophils Absolute Auto 4200 /uL (1500-7000); Neutrophils Percent Auto 66.4 % (50-75); Platelet Count 226 X10^3/uL (150-400); Red Blood Cell Count 4.43 X10^6/uL (4.0-5.2); Red Cell Distribution Width 12.9 % (11.6-14.8); White Blood Cell Count 6.3 X10^3/uL (4.5-11.0)
[2021-11-15 08:58] LABS: Alanine Aminotransferase 14 IU/L (<35); Albumin 4.3 g/dL (3.5-5.0); Albumin Globulin Ratio 1.3 (1.0-2.8); Alkaline Phosphatase 56 U/L (38-126); Aspartate Aminotransferase 21 IU/L (14-36); BUN Creatinine Ratio 14.5 (6-22); Bilirubin Total 0.3 mg/dL (0.2-1.3); Blood Urea Nitrogen 10 mg/dL (7-17); Calcium 8.7 mg/dL (8.4-10.2); Carbon Dioxide 30 mmol/L (22-32); Chloride 107 mmol/L (98-107); Cholesterol 201 mg/dL (140-199); Estimated Glomerular Filt Rate > 60 mL/min (>60); Globulin 3.4 g/dL (1.7-4.1); Glucose 100 mg/dL (70-100); HDL Cholesterol 31 mg/dL (40-60); HEMOLYSIS < 15 (0-50); LDL Cholesterol Calculated 150 mg/dL (<100); Potassium 4.3 mmol/L (3.4-5.1); Sodium 141 mmol/L (137-145); Total Protein 7.7 g/dL (6.3-8.2); Triglycerides 99 mg/dL (35-150)
[2021-11-15 10:40] LABS: TSH w/ Reflex to FT4 1.57 uIU/mL (0.47-4.68)
[2021-11-15 23:03] LABS: Triiodothyronine T3 Total 122 ng/dL (71-180)
== END ==
PROVIDERS: PCP Physician Assistant; Referring Provider Physician Assistant; Visit Provider Physician Assistant
DX: U09.9 Post COVID-19 condition, unspecified (principal); R06.02 Shortness of breath; E05.90 Thyrotoxicosis, unspecified without thyrotoxic crisis or storm; Z13.220 Encounter for screening for lipoid disorders
CPT/HCPCS: 36415; 71250; 80053; 80061; 84443; 84480; 85025

== ENCOUNTER → 2022-05-05 15:43 | Outpatient (CLI) | payer BC, OTHER, SELFPAY ==
--- NOTE | 2022-05-05 | DI.CT.S_ITS ---
PROCEDURE: CT CHEST WO CON INDICATIONS: Long haul COVID-19 TECHNIQUE: Noncontrast 5 mm thick sections acquired from the pulmonary apices to the posterior costophrenic angles. 1 mm lung window, 5 mm thick coronal and sagittal and 7 mm axial MIP reformats were then acquired. For radiation dose reduction, the following was used: automated exposure control, adjustment of mA and/or kV according to patient size. COMPARISON: [facility], CT, CT CHEST WO CON, 11/15/2021, 7:44. FINDINGS: Image quality: Excellent Lungs and pleura: Some areas of suspected scarring are seen in the lower lobes. There is some more focal areas, for example in the periphery of the left upper lobe and superior segments of the dependent lower lobes, stable to slightly decreased from prior. No pleural effusion or pneumothorax. Pulmonary micronodules are best seen on maximum intensity images. Followup for these is optional for high-risk patients. Mediastinum, heart, and esophagus: Possible tiny hiatal hernia. Heart size is normal. No pathologic adenopathy by size criteria Chest wall and thyroid: Thyroid is unremarkable. No adenopathy by size criteria in the axilla. Unremarkable chest wall Upper abdomen: Unremarkable on limited noncontrast CT. Bones: No acute or suspicious osseous abnormality. IMPRESSION: Scattered areas of pulmonary scarring. Overall distribution and extent is stable to slightly decreased from prior. Depending on symptom resolution, consider continued imaging surveillance to assess for stability/resolution. No new dense consolidation, pleural effusion, or mass. Dictated by: Abilio Hand M.D. on 05/06/2022 at 8:38 Approved by: Abilio Hand M.D. on 05/06/2022 at 8:44
--- NOTE | 2022-05-05 | DI.MG.S_ITS ---
BILATERAL DIGITAL SCREENING MAMMOGRAM 3D/2D WITH CAD: 05/05/2022 CLINICAL: Routine screening. Family history of breast cancer. Comparison is made to exam dated: 11/09/2017 mammogram - . There are scattered areas of fibroglandular density in both breasts (category b / 25%-50% glandular tissue). Current study was also evaluated with a Computer Aided Detection (CAD) system. No significant masses, calcifications, or other findings are seen in either breast. There has been no significant interval change. IMPRESSION: NEGATIVE There is no mammographic evidence of malignancy. A 1 year screening mammogram is recommended. Based on the Tyrer Cuzick model (a risk assessment model) the patient's lifetime risk is 5.4% and her 10 year risk is 0.9%. According to the ACR, ACS, and NCCN guidelines, an annual breast MRI exam along with mammogram is recommended if the patient's lifetime risk is 20% or greater. This exam was interpreted at Station ID: [id number]. NOTE: For mammograms, a report in lay terms will be sent to the patient. Approximately 15% of breast malignancies will not be visualized mammographically. In the management of a palpable breast mass, a negative mammogram must not discourage biopsy of a clinically suspicious lesion. Electronically Signed By: Letty miner/elayne:05/06/2022 11:04:47 letter sent: Normal Exam ACR BI-RADS Category 1: Negative [id number]
== END ==
PROVIDERS: PCP Family Medicine; Referring Provider Family Medicine; Visit Provider Family Medicine
DX: Z80.3 Family history of malignant neoplasm of breast (principal); B94.8 Sequelae of other specified infectious and parasitic diseases; Z12.31 Encounter for screening mammogram for malignant neoplasm of breast; R06.02 Shortness of breath
CPT/HCPCS: 71250; 77063; 77067

== ENCOUNTER → 2022-12-15 07:46 | Outpatient (CLI) | payer BC, OTHER, SELFPAY | PROVIDERS: PCP Family Medicine; Visit Provider Nurse Practitioner Family | DX: J02.9 Acute pharyngitis, unspecified (principal) | CPT/HCPCS: 87070 ==

== ENCOUNTER → 2023-05-26 12:17 | Outpatient (CLI) | payer BC, OTHER, SELFPAY ==
--- NOTE | 2023-05-26 12:19 | DI.US.S_ITS ---
PROCEDURE: US PELVIC COMPLETE INDICATIONS: MENORRHAGIA, DYSMENORRHEA TECHNIQUE: Real-time scanning was performed of the pelvic organs, with image documentation. Additional endovaginal scanning was necessary due to incomplete visualization of the adnexal and endometrial structures by transabdominal scanning. COMPARISON: [facility], US, PELVIC COMPLETE, 12/20/2016, 7:20. FINDINGS: Uterus: Uterus is retroverted and normal in size at 9.9 x 5 x 5.7 cm. The myometrium is heterogeneous. The endometrium measures 10 mm combined thickness. Ovaries: The right ovary measures 3.8 x 2.4 x 2.8 cm, with a calculated ovarian volume of thirteen point cc. The left ovary measures 3.1 x 2.1 x 2.4 cm, with a calculated ovarian volume of 8.1 cc. The ovaries have a normal sonographic appearance. Less than 12 follicles can be seen in each ovary. No adnexal masses are seen. Normal appearing venous and arterial waveforms are confirmed to each ovary. Other: No pathologic free abdominal or pelvic fluid. IMPRESSION: Pelvic ultrasound within normal limits, without a cause of the patient's presenting history identified. We strive to produce accurate, complete, and clear reports of imaging services. To assist us in improving patient care, this report was composed using standard report templates and voice recognition software. Therefore, it may contain abnormal punctuation, insertions and/or omissions. Occasional wrong-word or sound-alike substitutions may occur. Though we review the report and make efforts to correct it, we do recommend that the report be read carefully in proper context to recognize any text inaccuracies. Dictated by: Ralf Gray M.D. on 05/26/2023 at 15:02 Approved by: Ralf Gray M.D. on 05/26/2023 at 15:03
== END ==
PROVIDERS: PCP Nurse Practitioner Family; Referring Provider Physician Assistant Medical; Visit Provider Physician Assistant Medical
DX: N92.0 Excessive and frequent menstruation with regular cycle (principal)
CPT/HCPCS: 76830; 76856; 93976

== ENCOUNTER → 2023-08-19 13:27 | Outpatient (CLI) | payer BC, OTHER, SELFPAY ==
--- NOTE | 2023-08-19 13:28 | DI.CT.S_ITS ---
PROCEDURE: CT CHEST WO CON INDICATIONS: Other nonspecific abnormal finding of lung field TECHNIQUE: Noncontrast 5 mm thick sections acquired from the pulmonary apices to the posterior costophrenic angles. 1 mm lung window, 5 mm thick coronal and sagittal and 7 mm axial MIP reformats were then acquired. For radiation dose reduction, the following was used: automated exposure control, adjustment of mA and/or kV according to patient size. COMPARISON: [facility], CT, CT CHEST WO CON, 05/05/2022, 16:06. [facility], CT, CT CHEST WO CON, 11/15/2021, 7:44. FINDINGS: Image quality: Diagnostic. Lower Neck: No enlarged lymph nodes. Thyroid: No thyroid nodules which require sonographic follow up, per consensus guidelines. Axillae: No enlarged lymph nodes. Chest Wall: Unremarkable. Bones: Unremarkable. Lungs and Pleura: No pneumothorax or pleural effusions. No consolidation or suspicious nodules. The pattern of a small degree of linear scarring and slight alveolar scarring is stable from prior CT scanning 05/06/22. This also was present to a slightly greater degree in October of 2021. No new areas of abnormality have developed. Heart: Heart size is normal. No pericardial effusion. Thoracic Vessels: The aorta and pulmonary arteries demonstrate normal size. Mediastinum and Yolanda: No enlarged lymph nodes. Esophagus: No wall thickening. No hiatal hernia. Upper Abdomen: Visualized upper abdomen solid organs and bowel loops appear normal. IMPRESSION: Stable minimal linear scarring and slight alveolar scarring within the lung parenchyma bilaterally, likely due to prior inflammatory events. No progression, no suspicion for underlying active infection or neoplasm. Dictated by: Hernandez Harp M.D. on 08/19/2023 at 20:10 Approved by: Hernandez Harp M.D. on 08/19/2023 at 20:14
== END ==
LOC: CT 13:27
PROVIDERS: PCP Nurse Practitioner Family; Referring Provider Nurse Practitioner Family; Visit Provider Nurse Practitioner Family
DX: R91.8 Other nonspecific abnormal finding of lung field (principal)
CPT/HCPCS: 71250

== ENCOUNTER → 2023-12-29 09:41 | Outpatient (CLI) | payer OTHER, SELFPAY ==
--- NOTE | 2023-12-29 09:43 | DI.US.S_ITS ---
PROCEDURE: US THYROID INDICATIONS: Thyrotoxicosis TECHNIQUE: Real-time scanning was performed of the thyroid gland, with image documentation. COMPARISON: [facility], US, US THYROID, 09/24/2018, 9:20. FINDINGS: Thyroid: Right lobe measures 5.5 x 1.0 x 1.2 cm. Left lobe measures 5.9 x 1.1 x 1.3 cm. Isthmus is 0.2 cm thick. Echotexture is homogeneous. IMPRESSION: Mildly enlarged thyroid gland without focal mass. Dictated by: Tara Luong M.D. on 12/29/2023 at 14:24 Approved by: Tara Luong M.D. on 12/29/2023 at 14:25
== END ==
LOC: US 09:42
PROVIDERS: PCP Nurse Practitioner Family; Referring Provider Nurse Practitioner Family; Visit Provider Nurse Practitioner Family
DX: E05.90 Thyrotoxicosis, unspecified without thyrotoxic crisis or storm (principal); E04.9 Nontoxic goiter, unspecified
CPT/HCPCS: 76536

== ENCOUNTER → 2025-04-25 09:51 | Outpatient (CLI) | payer OTHER, SELFPAY ==
--- NOTE | 2025-04-25 09:52 | DI.US.S_ITS ---
PROCEDURE: US PELVIC COMPLETE INDICATIONS: left lower quadrant discomfort TECHNIQUE: Real-time scanning was performed of the pelvic organs, with image documentation. Additional endovaginal scanning was necessary due to incomplete visualization of the adnexal and endometrial structures by transabdominal scanning. COMPARISON: [facility], , US PELVIC COMPLETE, 05/26/2023, 12:27. FINDINGS: Uterus: Uterus is anteverted and normal in size at 10.3 x 4.2 x 6.5 cm. The myometrium is homogeneous. The endometrium measures 14 mm combined thickness. Ovaries: The right ovary measures 2.4 x 1.5 x 3.4 cm, with a calculated ovarian volume of 6.6 cc. The left ovary measures 2.2 x 2.4 x 1.3 cm, with a calculated ovarian volume of 3.8 cc. The ovaries have a normal sonographic appearance. There is normal left ovarian vascularity. There is a 1.9 cm corpus luteum with collapsing chan visualized in the right ovary. Less than 12 follicles can be seen in each ovary. No adnexal masses are seen. Other: No pathologic free abdominal or pelvic fluid. IMPRESSION: No significant sonographic abnormality. Dictated by: Lea Maxwell M.D. on 04/26/2025 at 21:46 Approved by: Lea Maxwell M.D. on 04/26/2025 at 21:49
== END ==
LOC: US 09:51
PROVIDERS: Referring Provider Student in an Organized Health Care Education/Training Program; Visit Provider Student in an Organized Health Care Education/Training Program
DX: R10.814 Left lower quadrant abdominal tenderness (principal)
CPT/HCPCS: 76830; 76856; 93976

== ENCOUNTER → 2025-06-05 18:39 | Outpatient (CLI) | payer OTHER, SELFPAY ==
--- NOTE | 2025-06-05 18:40 | DI.RAD.S_ITS ---
PROCEDURE: XR KNEE LT 3V INDICATIONS: Left knee pain TECHNIQUE: 3 views of the knee were acquired. COMPARISON: None. FINDINGS: Bones: No acute fracture or dislocation. Joint spaces are well maintained. Soft tissues: No joint effusion. No suspicious soft tissue calcifications. IMPRESSION: No acute bony abnormality or significant effusion. Dictated by: Nuzhat Moy M.D. on 06/06/2025 at 17:20 Approved by: Nuzhat Moy M.D. on 06/06/2025 at 17:21
== END ==
PROVIDERS: Referring Provider Nurse Practitioner Family; Visit Provider Nurse Practitioner Family
DX: M25.562 Pain in left knee (principal)
CPT/HCPCS: 73562

== ENCOUNTER 2025-06-21 14:21 | Emergency (ER) | payer OTHER, SELFPAY ==
[2025-06-21 14:28] VITALS: BP 141/88; PULSE 77; RESP 18; TEMP 36.2; O2SAT 99; BMI 26.6
--- NOTE | 2025-06-21 15:41 | ED.EXTPRO ---
HPI - Extremity Problem General Chief complaint: Extremity Problem,Nontraumatic Stated complaint: numbness/tingling in L leg just started Time Seen by Provider: 06/21/25 15:36 Source: patient Mode of arrival: Ambulatory History of Present Illness HPI Narrative: 49-year-old female presents with left leg numbness tingling going up the leg. She recently had a knee x-ray that was -2 weeks ago. Patient denies any trauma chest pain shortness of breath long-distance travel or any history of DVT. Other than what is stated 14 point review of system is negative. Related Data Home Medications ?Medication ?Instructions ?Recorded ?Confirmed loratadine 10 mg tablet (Allergy 10 mg PO DAILY 12/15/23 03/04/25 Relief (loratadine)) Allergies Allergy/AdvReac Type Severity Reaction Status Date / Time No Known Drug Allergies Allergy Verified 06/21/25 14:27 Review of Systems Review of Systems ROS Unobtainable: All systems reviewed & are unremarkable except as noted in HPI and below Patient History Medical History (Updated 06/21/25 @ 18:23 by Sanchez Pedroza DO) Menorrhagia Right foot injury Asthma (~1979) Eustachian tube dysfunction Substance abuse Anxiety (~1991) Depression (~1991) Chickenpox (~1981) Migraines (~2007) Gestational diabetes Obesity Seasonal allergies Trochanteric bursitis Tendonitis, Achilles Chronic back pain (~2009) Alopecia areata Eczema Acne (~1991) Painful menstrual periods Irregular menstrual cycle Abnormal Pap smear of cervix Frequent UTI Surgical History H/O tubal ligation Anesthesia Foot contusion (~11/21/07) Status post delivery (~2002) Status post delivery (~1996) Status post myringotomy with insertion of tube (~1984) Family History Child Age: 28 Autism Father Age: 76 Hepatitis C virus infection without hepatic coma, unspecified chronicity Substance use disorder Mother Age: 75 Diabetes mellitus Substance abuse Vertigo Osteoarthritis, unspecified osteoarthritis type, unspecified site Obesity, unspecified obesity severity, unspecified obesity type Uncomplicated asthma, unspecified asthma severity Secondary hypertension, unspecified Hyperlipidemia Grandfather Heart attack Grandmother Brain aneurysm Grandfather Heart attack Social History marital status: Smoking Status: Never smoker alcohol intake: current substance use type: does not use Smoking Status: Never smoker alcohol intake frequency: holidays/special occasions only Exam Narrative Exam Narrative: GENERAL: [49] year old patient appears stated age. Well-developed patient, in mild distress. HEAD: Atraumatic. Normocephalic. EYES: Pupils equal round and reactive. Extraocular motions intact. No scleral icterus. No injection or drainage. ENT: Nose without bleeding, purulent drainage. Throat without erythema, tonsillar hypertrophy or exudate. Airway patent. NECK: Trachea midline. Non tender CARDIOVASCULAR: Regular rate and rhythm without murmurs, gallops, or rubs. RESPIRATORY: Clear to auscultation. Breath sounds equal bilaterally. No wheezes, rales, or rhonchi. GASTROINTESTINAL: Abdomen soft, non-tender, nondistended. EXTREMITIES: Trace edema b/l l/e inc calf girth RLE > LLE but nonttp motor sensory intact +2 DP +2 PT cap refill less than 2 seconds BACK: Nontender without deformity or crepitance. No flank tenderness. NEURO: AOx3. SKIN: No rash or erythema of visible areas Initial Vital Signs Initial Vital Signs: Vital Signs Temperature 97.2 F L 06/21/25 14:28 Pulse Rate 77 06/21/25 14:28 Respiratory Rate 18 06/21/25 14:28 Blood Pressure 141/88 H 06/21/25 14:28 Pulse Oximetry 99 06/21/25 14:28 Oxygen Delivery Method Room Air 06/21/25 14:28 Course Orders Ordered: ED Orders 06/21/25 15:58 CBC Auto Diff [Complete Blood Count AUTO DIFF] Stat CMP [Comprehensive Metabolic Panel] Stat D Dimer Stat Vital Signs Vital signs: Vital Signs - 8 hr 06/21/25 14:28 Temperature 97.2 F L Pulse Rate 77 Respiratory Rate 18 Blood Pressure 141/88 H Pulse Oximetry 99 Oxygen Delivery Method Room Air MDM - Extremity (Nontraumatic) Lab Data 06/21/25 15:58 06/21/25 15:58 Labs: Lab Results 06/21/25 Range/Units 15:58 WBC 8.8 (4.5-11.0) X10^3/uL RBC 4.59 (4.0-5.2) X10^6/uL Hgb 14.3 (12.0-16.0) g/dL Hct 42.7 (36-46) % MCV 93.2 (80-100) fL MCH 31.2 (26-34) PG MCHC 33.5 (30-36) % RDW 13.0 (11.6-14.8) % Plt Count 234 (150-400) X10^3/uL Neut % (Auto) 67.3 (50-75) % Lymph % (Auto) 22.6 L (25-40) % Dickens % (Auto) 6.0 (3-14) % Eos % (Auto) 2.5 (2-4) % Baso % (Auto) 1.6 (0-2) % Neut # (Auto) 5900 (5589-0671) /uL Lymph # (Auto) 2000 (3398-9045) /uL Dickens # (Auto) 500 (0-900) /uL Eos # (Auto) 200 (0-450) /uL Baso # (Auto) 100 (0-100) /uL D-Dimer < 215 (<500) ng/ml Sodium 138 (137-145) mmol/L Potassium 3.7 (3.4-5.1) mmol/L Chloride 104 (98-107) mmol/L Carbon Dioxide 25 (22-32) mmol/L BUN 12 (7-17) mg/dL Creatinine 0.68 (0.52-1.04) mg/dL Estimated GFR > 60 (>60) mL/min BUN/Creatinine Ratio 17.6 (6-22) Glucose 100 H (70-99) mg/dL Calcium 8.9 (8.4-10.2) mg/dL Total Bilirubin 0.1 L (0.2-1.3) mg/dL AST 21 (14-36) IU/L ALT 11 (<35) IU/L Alkaline Phosphatase 69 (38-126) U/L Total Protein 7.7 (6.3-8.2) g/dL Albumin 4.3 (3.5-5.0) g/dL Globulin 3.4 (1.7-4.1) g/dL Albumin/Globulin Ratio 1.3 (1.0-2.8) MDM Narrative Medical decision making narrative: All lab work vital signs nurse triage note medication list previous ER visits in all imaging studies reviewed. WBC 8.8 hemoglobin 14.3 platelets 234 D-dimer less than 215 sodium 138 potassium 3.7 chloride 104 CO2 25 BUN 12th at any 0.68 glucose 100. Differential dx dvt, neuropathy, OA, cramp, electrolyte deranagement. Discharge Plan Departure Patient Disposition: Home Clinical Impression: Numbness and tingling Instructions: DI for Numbness/Tingling Activity Restrictions/Additional Instructions: Return with new or worsening symptoms. Follow up with PCP next week if no improvement in symptoms. Prescriptions: No Action loratadine [Allergy Relief (loratadine)] 10 mg tablet 10 mg PO DAILY Referrals: Miscellaneous,Doctor, MD [Primary Care Provider, Medical] Stand Alone Forms: Patient Portal/API
[2025-06-21 16:06] LABS: Add Manual Diff / Slide Review NO; Hematocrit 42.7 % (36-46); Hemoglobin 14.3 g/dL (12.0-16.0); Lymphocytes Absolute Auto 2000 /uL (1100-4500); Mean Corpuscular HGB Conc 33.5 % (30-36); Mean Corpuscular Hemoglobin 31.2 PG (26-34); Mean Corpuscular Volume 93.2 fL (80-100); Platelet Count 234 X10^3/uL (150-400)
[2025-06-21 16:17] LABS: Alanine Aminotransferase 11 IU/L (<35); Albumin 4.3 g/dL (3.5-5.0); Albumin Globulin Ratio 1.3 (1.0-2.8); Alkaline Phosphatase 69 U/L (38-126); Blood Urea Nitrogen 12 mg/dL (7-17); Calcium 8.9 mg/dL (8.4-10.2); Carbon Dioxide 25 mmol/L (22-32); Chloride 104 mmol/L (98-107); Estimated Glomerular Filt Rate > 60 mL/min (>60); Globulin 3.4 g/dL (1.7-4.1); Glucose 100 mg/dL (70-99); HEMOLYSIS < 15 (0-50); Potassium 3.7 mmol/L (3.4-5.1); Sodium 138 mmol/L (137-145); Total Protein 7.7 g/dL (6.3-8.2)
[2025-06-21 18:47] VITALS: BP 131/86; PULSE 72; RESP 17; O2SAT 99
== END 2025-06-21 18:47 | disposition home or self-care (01) ==
PROVIDERS: Emergency Provider Family Medicine
DX: R20.0 Anesthesia of skin (principal); R20.2 Paresthesia of skin
CPT/HCPCS: 36415; 80053; 85025; 85379; 99281; 99283